=== PATIENT | male | born 1945 | race Caucasian/White ===

== ENCOUNTER → 2016-12-20 | Outpatient (CLI) | payer BC ==
[~2016-12-20] MED LIST: ALBU1AER9 INH; CHOL100010 PO; EPP3 IM; GLUC10007 PO; TAMS0.4C38 PO; WARF6TAB PO
[2016-12-20 09:45] LABS: ALT/SGPT 27 U/L (12-78); AST/SGOT 23 U/L (15-37); BLOOD UREA NITROGEN 17 mg/dl (7-18); BUN/CREATININE RATIO 14.4 (10-20); CARBON DIOXIDE 27 mmol/L (21-32); CHLORIDE 107 mmol/L (98-107); GLUCOSE 91 mg/dl (70-99); SODIUM 142 mmol/L (136-145)
[2016-12-20 09:51] LABS: BASO % 0.4 %; BASO ABS # 0.02 K/uL (0-0.2); EOS % 3.2 %; HEMATOCRIT 45.3 % (42-52); IG% 0.2 %; LYMPH ABS # 1.58 K/uL (1.2-3.4); MEAN CELL VOLUME 88.1 fL (80-100); MEAN CORPUSCULAR HEMOGLOBIN 30.5 pg (25-34); MEAN CORPUSCULAR HGB CONC 34.7 g/dl (32-36); MEAN PLATELET VOLUME 10.4 fL (7.4-10.4); NEUT % 53.2 %; PLATELET COUNT 213 K/uL (130-400); RED BLOOD COUNT 5.14 M/uL (4.7-6.1); WHITE BLOOD COUNT 4.65 K/uL (4.8-10.8)
[2016-12-20 09:52] LABS: CHOLESTEROL 256 mg/dl (0-200); CHOLESTEROL/HDL RATIO 5.1; HDL CHOLESTEROL 50 mg/dl; LDL CHOLESTEROL CALCULATED 176 mg/dl; TRIGLYCERIDES 151 mg/dl (0-150); VERY LOW DENSITY LIPOPROT CALC 30 mg/dl
[2016-12-20 10:36] LABS: COMPLETE YES
== END | disposition home or self-care (01) ==
LOC: C.LAB1850 08:32
PROVIDERS: ATTEND Internal Medicine
DX: Z11.59 Encounter for screening for other viral diseases (principal); E78.5 Hyperlipidemia, unspecified; E55.9 Vitamin D deficiency, unspecified; Z79.01 Long term (current) use of anticoagulants; R35.0 Frequency of micturition; Z51.81 Encounter for therapeutic drug level monitoring

== ENCOUNTER → 2017-05-23 | Outpatient (CLI) | payer BC ==
--- NOTE | 2017-05-23 12:34 | DIAGNOSTIC IMAGING REPORT ---
RIGHT SECOND FINGER RADIOGRAPHS CLINICAL HISTORY: Recent right index finger injury with swelling. COMPARISON: None FINDINGS: Alignment of the right second finger is anatomic. No acute fracture is identified. There is moderate joint space narrowing and osteophytosis of the distal interphalangeal joint of the right second finger. IMPRESSION: 1. No acute fracture or dislocation of the right second finger. 2. 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 Electronically signed by: Fidel Willard M.D. 05/23/2017 12:33 PM Dictated Date/Time: 05/23/2017 12:31 PM
== END | disposition home or self-care (01) ==
LOC: C.RADBC 12:11
PROVIDERS: ATTEND Internal Medicine
DX: S69.91XD Unspecified injury of right wrist, hand and finger(s), subsequent encounter (principal); X58.XXXD Exposure to other specified factors, subsequent encounter

== ENCOUNTER → 2017-07-18 | Outpatient (CLI) | payer BC | END | disposition home or self-care (01) | LOC: C.LABSPEC 16:50 | PROVIDERS: ATTEND Orthopaedic Surgery | DX: S61.230A Puncture wound without foreign body of right index finger without damage to nail, initial encounter (principal); X58.XXXA Exposure to other specified factors, initial encounter; D36.12 Benign neoplasm of peripheral nerves and autonomic nervous system, upper limb, including shoulder ==

== ENCOUNTER → 2017-07-18 | Outpatient (CLI) | payer BC | END | disposition home or self-care (01) | LOC: C.PATHSPEC 16:52 | PROVIDERS: ATTEND Orthopaedic Surgery | DX: D36.12 Benign neoplasm of peripheral nerves and autonomic nervous system, upper limb, including shoulder (principal) ==

== ENCOUNTER → 2017-07-25 | Outpatient (CLI) | payer BC ==
[2017-07-25 13:23] LABS: BASO % 0.2 %; BASO ABS # 0.01 K/uL (0-0.2); COMPLETE YES; EOS % 2.3 %; HEMATOCRIT 47.2 % (42-52); IG% 0.4 %; LYMPH ABS # 1.43 K/uL (1.2-3.4); MEAN CELL VOLUME 93.7 fL (80-100); MEAN CORPUSCULAR HEMOGLOBIN 30.6 pg (25-34); MEAN CORPUSCULAR HGB CONC 32.6 g/dl (32-36); MEAN PLATELET VOLUME 10.7 fL (7.4-10.4); MONO % 10.7 %; NEUT % 56.4 %; PLATELET COUNT 205 K/uL (130-400); RED BLOOD COUNT 5.04 M/uL (4.7-6.1); WHITE BLOOD COUNT 4.77 K/uL (4.8-10.8)
[2017-07-25 13:33] LABS: INR 1.9 (0.9-1.1); PROTHROMBIN TIME (PATIENT) 20.9 SECONDS (9.0-12.0)
[2017-07-25 14:10] LABS: BLOOD UREA NITROGEN 17 mg/dl (7-18); BUN/CREATININE RATIO 15.5 (10-20); CALCIUM 9.2 mg/dl (8.5-10.1); CARBON DIOXIDE 31 mmol/L (21-32); CHLORIDE 106 mmol/L (98-107); CHOLESTEROL 259 mg/dl (0-200); GLUCOSE 93 mg/dl (70-99); POTASSIUM 4.5 mmol/L (3.5-5.1); SODIUM 141 mmol/L (136-145); TRIGLYCERIDES 169 mg/dl (0-150); VERY LOW DENSITY LIPOPROT CALC 34 mg/dl
[2017-07-25 14:13] LABS: CHOLESTEROL/HDL RATIO 5.4; HDL CHOLESTEROL 48 mg/dl; LDL CHOLESTEROL CALCULATED 177 mg/dl
== END | disposition home or self-care (01) ==
LOC: C.LABBC 09:33
PROVIDERS: ATTEND Internal Medicine
DX: Z00.00 Encounter for general adult medical examination without abnormal findings (principal); E55.9 Vitamin D deficiency, unspecified; E78.5 Hyperlipidemia, unspecified; Z79.01 Long term (current) use of anticoagulants

== ENCOUNTER → 2018-01-23 | Outpatient (CLI) | payer BC | END | disposition home or self-care (01) | LOC: C.LABBC 09:05 | PROVIDERS: ATTEND Internal Medicine | DX: E78.5 Hyperlipidemia, unspecified (principal) ==

== ENCOUNTER 2023-02-13 00:29 | Inpatient (IN) ==
[2023-02-13] MEDS ORDERED: HYDROmorphone INJ 0.5 MG/0.5 ML SYR IV STA (03:06)
[2023-02-13] MEDS ORDERED: ONDANSETRON INJ 2 MG/ML 2 ML VIAL IV STA (03:06)
[2023-02-13 03:34] LABS: Appearance Urine Clear (Clear); Bacteria Urine Automated Negative (Negative); Bilirubin Urine Negative (Negative); Blood Urine Trace (Negative); Cast Urine Automated 0 /lpf (0-5); Color Urine Yellow; Epithelial Cell Urine Auto 0-5 /lpf (0-5); Glucose Urine UA Negative (Negative); Ketones Urine Trace (Negative); Leukocyte Esterase Urine Negative (Negative); Nitrite Urine Negative (Negative); Protein Urine Negative (Negative); Specific Gravity Urine 1.021 (1.000-1.030); Urobilinogen Urine Negative (Negative)
[2023-02-13 03:40] LABS: Basophils # (auto) 0.03 K/uL (0-0.2); Basophils % (auto) 0.3 %; Eosinophils # (auto) 0.03 K/uL (0-0.50); Eosinophils % (auto) 0.3 %; Hematocrit (blood only) 43.9 % (42.0-52.0); Hemoglobin 15.1 g/dl (14.0-18.0); Immature Granulocytes # (auto) 0.04 K/uL (0.01-0.20); Immature Granulocytes % (auto) 0.3 %; Lymphocytes # (auto) 0.96 K/uL (1.2-3.4); Lymphocytes % (auto) 8.3 %; Mean Corpuscular Hemoglobin 30.6 pg (25.0-34.0); Mean Corpuscular Hgb Conc 34.4 g/dL (32.0-36.0); Mean Platelet Volume 10.2 fL (9.4-12.4); Monocytes # (auto) 0.81 K/uL (0.11-0.59); Neutrophils # (auto) 9.69 K/uL (1.40-6.50); Neutrophils % (auto) 83.8 %; Platelet Count 174 K/uL (130-400); RDW Standard Deviation 42.5 fL (36.4-46.3); Red Blood Count 4.93 M/uL (4.70-6.10); White Blood Count 11.56 K/ul (4.8-10.8)
[2023-02-13 03:48] LABS: BUN Creatinine Ratio 18.1 (10-20); Bilirubin,Total 0.6 mg/dl (0.2-1.0); Calcium 8.9 mg/dl (8.6-10.3); Creatinine Clr Calc Pharmacy 62.9 ml/min; Est GFR (African American) 62.7 ml/min; Est GFR (Non-African American) 54.1 ml/min; Magnesium 1.6 mg/dl (1.7-2.4); Potassium 4.2 mmol/L (3.5-5.1); Total Protein 6.5 gm/dl (6.0-8.3)
[2023-02-13 03:59] LABS: INR 3.4 (0.9-1.1); Prothrombin Time 33.5 Seconds (9.0-12.0)
[2023-02-13] MEDS ORDERED: VANCOMYCIN CONSULT ACTIVE PRN ×2 (05:05→08:40)
[2023-02-13] MEDS ORDERED: VANCOMYCIN HCL 2,250 MG in SODIUM CHLORIDE 0.9% 500 ML IV ONE (05:05)
--- NOTE | 2023-02-13 06:09 | History & Physical Report ---
Date of Service February 13, 2023 Assessment & Plan (1) Cellulitis: Plan: 77 male presenting with RLE cellulitis that started this evening around 23:30. Redness has progressed to above the knee. Patient with chills, otherwise denies systemic signs of infection. WBC mildly elevated at 11.56. No evidence of deeper soft tissue infection/necrotizing fasciitis. Patient has been given Vancomycin. US of RLE performed - results pending -Observation to medical -Monitor area of redness - angelica and date daily -Continue Vancomycin -Tylenol as needed for pain or fever -Morphine as needed for severe pain (2) Hyperlipidemia: Plan: Chronic. Stable -Continue Crestor at home dose -Heart healthy diet (3) Benign localized hyperplasia of prostate: Plan: Chronic. Stable -Continue Flomax 0.4mg po qHS (4) DVT (deep venous thrombosis): Plan: Patient with remote history of VTE - bilateral DVTs and PEs. He is on Coumadin anticoagulation. INR today = 3.4. -Hold tonight's dose -Resume 5mg po qHS on 02/14/23 -Check INR in AM VTE over 25 years ago. Most likely unprovoked. Patient is to be on lifelong Coumadin. He has discussed possibly switching to DOAC with his PCP. They have decided that he will stay on Coumadin for now as he is tolerating it well. F/E/N - Heplock. Mg repletion x 2gm, Heart healthy diet as tolerated Ppx - Coumadin Code - Full Dispo - Observation to medical History of Present Illness Chief Complaint: RLE cellulitis Primary Care Provider: Ephraim Chester MD Dixon Fonseca is a pleasant 77yo male with remote history of VTE on Coumadin anticoagulation, [facility] presenting with RLE cellulitis. One week ago patient was doing yard work. He fell in the yard and landed in an area of cut sticks and yard trimming and sustained a skin tear and scratch to his lateral right leg. He was seen at [facility]. The wound was cleaned and dressed and had steri strips placed. He was started on Keflex. Patient took 2 doses of Keflex and then began feeling ill - abdominal pain and diarrhea. He contacted the Urgent Care and was told that he did not have to complete the antibiotics. He was doing well for several days. He changed the dressing on his wound daily and noted a considerable amount of serous drainage. This evening around 10:30 PM he developed acute pain in the right rosado with redness and swelling. The redness progressed, now above his right knee. He also developed some chills. These symptoms prompted him to come to the ER. In the ER he is afebrile, HD stable and non-toxic in appearance. No additional complaints. ER course: Dilaudid, Zofran, Vancomycin Allergies Allergy/AdvReac Type Severity Reaction Status Date / Time bee venom protein (honey bee) Allergy Intermediate SWELLING Verified 02/13/23 01:29 mold Allergy Intermediate SNEEZING, Verified 02/13/23 01:29 CONGESTION cephalexin AdvReac Severe SEVERE Verified 02/13/23 01:29 DIARRHEA AFTER 2 DOSES Home Medications Medication Instructions Recorded Confirmed Type cholecalciferol (vitamin D3) 25 1,000 units PO DAILY 08/18/19 02/13/23 History mcg (1,000 unit) capsule tamsulosin 0.4 mg capsule 0.4 mg PO HS #90 caps 04/03/22 02/13/23 Rx omeprazole 20 mg capsule,delayed 20 mg PO DAILY #90 caps 06/05/22 02/13/23 Rx release albuterol sulfate 90 mcg/actuation 1 inh inhalation BID PRN shortness 10/02/22 02/13/23 Rx aerosol inhaler of breath or wheezing #6.7 grams vitamin B complex (B 1 tab PO DAILY 11/22/22 02/13/23 History Complex-Vitamin B12 tablet) rosuvastatin 10 mg tablet 10 mg PO HS #90 tabs 12/13/22 02/13/23 Rx warfarin 5 mg tablet 5 mg PO QPM 02/13/23 02/13/23 History Past Med/Surg History Medical History (Updated 02/13/23 @ 06:07 by Priyanka Coelho DO) History of deep vein thrombosis of lower extremity Hyperlipidemia Surgical History H/O oral surgery History of colonoscopy S/P tonsillectomy and adenoidectomy Family History Mother Lymphoma Brother Prostate cancer FH: kidney cancer Father Melanoma Non-Hodgkin lymphoma Grandmother (Maternal) Stroke Grandmother (Paternal) Stroke Social History Smoking Status: Unknown if ever smoked Second Hand Exposure: No; Hx Alcohol Use: No Hx Substance Use: No Preferred Language: Nepali Communication Ability: Effective Visual Impairment: No Limitations Hearing Ability: Normal Developmental Behavioral Physician Required: Yes marital status: Current Living Situation: Spouse current occupational status: retired Feels Safe at Home: Yes Childhood Exposure to Second-Hand Smoke: No Dental Care, Regularly: Yes Physical Activity Frequency: Daily Seatbelt Use: always Sunscreen Use: No Review of Systems Review of Systems: All systems reviewed & are unremarkable except as noted in HPI & below Physical Exam Physical Exam: General: patient resting comfortably, NAD, non-toxic in appearance, AA&O x 4 Skin: warm, dry, intact, no rashes or lesions HEENT: NC/AT, PERRL, EOMI, anicteric sclera, conjunctiva without injection, external ear normal to inspection and nontender, nares patent, moist mucus membranes, dentition intact, no oropharyngeal lesions, neck supple, trachea midline, no LAD, no thyromegaly, no JVD Heart: +S1/S2, regular, no m/r/g Lungs: equal air entry bilaterally, no rales/rhonchi/wheezes Abd: +BS, soft, NT/ND, no masses/organomegaly/ascites Ext: warmth and redness of RLE with redness extending to above the right knee, tender to palpation, 1+ pitting edema. No crepitus, bullae or lymphangitic streaking Neuro: nonfocal, patient AA&O x 4, speech intact, no facial droop, moving all extremities on command with equal strength 5/5 Results & Data Results & Data Vital Signs (Past 12 Hours) Vital Signs Temp Pulse Pulse Resp BP BP Pulse Ox 02/13/23 05:49 83 16 157/88 H 96 02/13/23 04:51 86 16 152/81 H 92 02/13/23 04:48 88 L 02/13/23 04:02 83 16 153/78 H 95 02/13/23 03:38 82 16 165/87 H 94 02/13/23 01:44 37.2 C 80 20 152/94 H 98 02/13/23 00:29 18 152/94 H 02/13/23 00:31 36.5 C 80 16 152/88 H 100 O2 Del Method O2 Flow Rate 02/13/23 05:49 Nasal Cannula 2 02/13/23 04:51 Nasal Cannula 2 02/13/23 04:48 Nasal Cannula 0 02/13/23 04:02 Room Air 02/13/23 03:38 Room Air 02/13/23 01:44 Room Air 02/13/23 00:29 Room Air 02/13/23 00:31 Room Air Laboratory Results Laboratory Results WBC 11.56 K/ul (4.8-10.8) H 02/13/23 03:10 RBC 4.93 M/uL (4.70-6.10) 02/13/23 03:10 Hgb 15.1 g/dl (14.0-18.0) 02/13/23 03:10 Hct 43.9 % (42.0-52.0) 02/13/23 03:10 MCV 89.0 fL (80.0-100.0) 02/13/23 03:10 MCH 30.6 pg (25.0-34.0) 02/13/23 03:10 MCHC 34.4 g/dL (32.0-36.0) 02/13/23 03:10 RDW Std Deviation 42.5 fL (36.4-46.3) 02/13/23 03:10 RDW Coeff of Aydee 13.0 % (11.5-14.5) 02/13/23 03:10 Plt Count 174 K/uL (130-400) 02/13/23 03:10 MPV 10.2 fL (9.4-12.4) 02/13/23 03:10 Immature Gran % (Auto) 0.3 % 02/13/23 03:10 Neut % (Auto) 83.8 % 02/13/23 03:10 Lymph % (Auto) 8.3 % 02/13/23 03:10 [place] % (Auto) 7.0 % 02/13/23 03:10 Eos % (Auto) 0.3 % 02/13/23 03:10 Baso % (Auto) 0.3 % 02/13/23 03:10 Neut # (Auto) 9.69 K/uL (1.40-6.50) H 02/13/23 03:10 Lymph # (Auto) 0.96 K/uL (1.2-3.4) L 02/13/23 03:10 [place] # (Auto) 0.81 K/uL (0.11-0.59) H 02/13/23 03:10 Eos # (Auto) 0.03 K/uL (0-0.50) 02/13/23 03:10 Baso # (Auto) 0.03 K/uL (0-0.2) 02/13/23 03:10 Immature Gran # (Auto) 0.04 K/uL (0.01-0.20) 02/13/23 03:10 PT 33.5 Seconds (9.0-12.0) H 02/13/23 03:10 INR 3.4 (0.9-1.1) H 02/13/23 03:10 Sodium 140 mmol/L (136-145) 02/13/23 03:10 Potassium 4.2 mmol/L (3.5-5.1) 02/13/23 03:10 Chloride 108 mmol/L (98-107) H 02/13/23 03:10 Carbon Dioxide 25 mmol/L (21-32) 02/13/23 03:10 Anion Gap 7 (3-11) 02/13/23 03:10 BUN 23 mg/dl (6-23) 02/13/23 03:10 Creatinine 1.27 mg/dl (0.6-1.4) 02/13/23 03:10 Est Cr Clr Drug Dosing 62.9 ml/min 02/13/23 03:10 Est GFR ( Amer) 62.7 ml/min 02/13/23 03:10 Est GFR (Non-Af Amer) 54.1 ml/min 02/13/23 03:10 BUN/Creatinine Ratio 18.1 (10-20) 02/13/23 03:10 Glucose 104 mg/dl (70-99(Fasting)) H 02/13/23 03:10 Lactate 2.0 mmol/L (0.4-2.0) 02/13/23 03:10 Calcium 8.9 mg/dl (8.6-10.3) 02/13/23 03:10 Magnesium 1.6 mg/dl (1.7-2.4) L 02/13/23 03:10 Total Bilirubin 0.6 mg/dl (0.2-1.0) 02/13/23 03:10 Direct Bilirubin 0.0 mg/dl (0-0.2) 02/13/23 03:10 AST 26 U/L (13-39) 02/13/23 03:10 ALT 23 U/L (7-52) 02/13/23 03:10 Alkaline Phosphatase 62 U/L (34-104) 02/13/23 03:10 Troponin I High Sens 8.0 pg/ml (0-20) 02/13/23 03:10 Total Protein 6.5 gm/dl (6.0-8.3) 02/13/23 03:10 Albumin 4.0 gm/dl (3.4-5.0) 02/13/23 03:10 Procalcitonin 0.05 ng/ml (0-0.5) 02/13/23 03:10 Urine Color Yellow 02/13/23 03:10 Urine Appearance Clear (Clear) 02/13/23 03:10 Urine pH 6.0 (4.5-7.5) 02/13/23 03:10 Ur Specific [place] 1.021 (1.000-1.030) 02/13/23 03:10 Urine Protein Negative (Negative) 02/13/23 03:10 Urine Glucose (UA) Negative (Negative) 02/13/23 03:10 Urine Ketones Trace (Negative) H 02/13/23 03:10 Urine Blood Trace (Negative) H 02/13/23 03:10 Urine Nitrite Negative (Negative) 02/13/23 03:10 Urine Bilirubin Negative (Negative) 02/13/23 03:10 Urine Urobilinogen Negative (Negative) 02/13/23 03:10 Ur Leukocyte Esterase Negative (Negative) 02/13/23 03:10 Urine WBC (Auto) 1-5 /hpf (0-5) 02/13/23 03:10 Urine RBC (Auto) 5-10 /hpf (0-4) H 02/13/23 03:10 U Hyaline Cast (Auto) 0 /lpf (0-5) 02/13/23 03:10 U Epithel Cells (Auto) 0-5 /lpf (0-5) 02/13/23 03:10 Urine Bacteria (Auto) Negative (Negative) 02/13/23 03:10 SARS-CoV-2, RNA, NAAT NEGATIVE (NEGATIVE) 02/13/23 03:10 PG Care Time/CCT Total # of Minutes Spent Total Time Spent with Patient: Total time spent is greater than 50% in coordination of care (as documented) at patient's floor/unit and/or counseling patient: Coding Level of Care Code 20458 INT INP/OBS CARE 2/55MIN Diagnoses Cellulitis L03.90 Hyperlipidemia E78.5 Benign localized hyperplasia of prostate N40.0 DVT (deep venous thrombosis) I82.409
--- NOTE | 2023-02-13 06:52 | Ultrasound Report ---
Exam(s): US VENOUS RIGHT LOWER EXTREMITY EXAM: US Duplex Right Lower Extremity Veins CLINICAL HISTORY: Reason for exam: eval for dvt. TECHNIQUE: Real-time duplex ultrasound scan of the right lower extremity veins integrating B-mode two-dimensional vascular structure, Doppler spectral analysis, color flow Doppler imaging and compression. COMPARISON: No relevant prior studies available. FINDINGS: Deep veins: Unremarkable. The visualized deep veins of the right lower extremity are compressible with color flow. No visualized thrombus. Superficial veins: Unremarkable. Soft tissues: No acute findings. IMPRESSION: No DVT within the right lower extremity. Electronically signed by: Tristin Leal MD 02/13/23 06:52 AM
--- NOTE | 2023-02-13 07:13 | Emergency Department Note ---
Impression & Plan Cellulitis of right lower extremity, Traumatic open wound of right lower leg with infection Admit to the [facility] Hospitalist. ED Provider Note NAME: NIKOLAS AMANDA AGE: 77 SEX: M ARRIVES VIA: Walk-In INFORMANT: Patient and his ED PROVIDER(S): Jennifer Leo DO CHIEF COMPLAINT: Right leg pain PLAN: Disposition: Admit to the [facility] Hospitalist Condition: Fair MEDICAL DECISION MAKING: This is a 77-year-old male patient who presents to emergency department with s ignificant pain to the right lower extremity surrounding a wound he sustained approximately a week ago. On exam, the patient has obvious signs of cellulitis surrounding the wound extending proximally to the knee. There is moderate serosanguineous fluid draining from the wound. Steri-Strips were removed. Laboratory studies revealed a white blood cell count 11.5, no significant evidence of anemia and INR 3.4. Magnesium was slightly low at 1.6. Duplex revealed no evidence for DVT. Patient was given a dose of IV Dilaudid to manage his pain. Patient was medicated with IV vancomycin for obvious cellulitis and wound infection to the right lower extremity. Triage Nursing notes reviewed and agree with them. Additional history obtained from patient's is at the bedside. External medical records were reviewed including primary care visits Vital Signs: reviewed and unremarkable Differential diagnosis: DVT, cellulitis, wound abscess ER treatment provided: Cardiac monitoring IV Dilaudid IV Zofran IV vancomycin Diagnostics interpreted by me: ECG: Normal sinus rhythm at [address] segment elevation or signs of ischemia. There is no ectopy Cardiac Monitoring: Normal sinus rhythm at 81 Laboratory studies: See below Imaging studies: As per stat rad Right lower extremity duplex: No DVT HPI: 77/M arrives for evaluation of right leg pain. Patient presents after he woke with moderate pain in the right leg. Patient suffered an abrasion/skin tear to the right posterior lower leg. He was seen at [facility] urgent care where they cleaned the wound and repaired it with Steri-Strips. It seemed to be healing appropriately until last evening when the patient noticed significant increased pain to the wound and significant edema and erythema of the right tib- fib region. PAST MEDICAL HISTORY:A-fib, DVT, anxiety PAST SURGICAL HISTORY:See Below FAMILY HISTORY:See Below SOCIAL HISTORY:Patient lives with his HOME MEDICATIONS:See Below ALLERGIES:See Below VITALS:See Below PHYSICAL EXAMINATION: HEENT: Head - normocephalic and atraumatic. Pupils are equal, round, and reactive to light. Extraocular eye muscles are intact, and sclera are anict kristan. Nose - moist nasal mucosa without discharge. Mouth - moist buccal mucosa. Oropharynx is nonerythematous and there is no tonsillar exudate or edema noted. Neck: Supple; no cervical lymphadenopathy Heart: Regular rate and rhythm. There is a normal S1 and S2 with no murmurs, clicks, or gallops appreciated. Lungs: Clear to auscultation bilaterally with no wheezes, rales, or rhonchi. Abdomen: Soft, completely nontender, nondistended, with good bowel sounds. There are no palpable pulsatile masses or hepatosplenomegaly. There is no guarding, rigidity, or rebound noted. Extremities: Significant erythema and edema noted to the right lower extremity specifically about the circumferential tib-fib region. There is a healing wound noted over the distal posterior tib-fib region with some Steri-Strips remaining in place nor peeling away. There is serosanguineous fluid draining from that wound. Skin: warm and dry with good turgor and no rashes. ED COURSE: Times/Reassessments: 140 patient was evaluated in room A-10. A complete history and physical was performed. A septic protocol was performed. An order was placed for continuous cardiac monitoring. The patient was in a normal sinus rhythm at a rate of 81. A twel ve-lead EKG was obtained as described above. Patient was medicated with IV Dilaudid and IV Zofran for pain and nausea. Patient had a duplex of the right lower extremity. Patient was started on IV vancomycin. I discussed the case with [facility] Hospitalist and they will evaluate for further management. Jennifer Leo DO Past Med/Surg History Medical History (Updated 02/14/23 @ 06:35 by Jennifer Leo DO) History of deep vein thrombosis of lower extremity Hyperlipidemia Surgical History H/O oral surgery History of colonoscopy S/P tonsillectomy and adenoidectomy Family History Mother Lymphoma Brother Prostate cancer FH: kidney cancer Father Melanoma Non-Hodgkin lymphoma Grandmother (Maternal) Stroke Grandmother (Paternal) Stroke Social History Smoking Status: Never smoker Second Hand Exposure: No; Hx Alcohol Use: No Hx Substance Use: No Preferred Language: Fijian Communication Ability: Effective Visual Impairment: No Limitations Hearing Ability: Normal Fuel Manager Required: No Beliefs That Will Affect Care: Moravian marital status: Current Living Situation: Spouse current occupational status: retired Other Information That Helps Us Care for You: No Feels Safe at Home: Yes Childhood Exposure to Second-Hand Smoke: No Dental Care, Regularly: Yes Physical Activity Frequency: Daily Seatbelt Use: always Sunscreen Use: No Assistive Devices: None Allergies Allergies Allergy/AdvReac Type Severity Reaction Status Date / Time bee venom protein (honey bee) Allergy Intermediate SWELLING Verified 02/13/23 01:29 mold Allergy Intermediate SNEEZING, Verified 02/13/23 01:29 CONGESTION cephalexin AdvReac Severe SEVERE Verified 02/13/23 01:29 DIARRHEA AFTER 2 DOSES Home Meds Home Medications Medication Instructions Recorded Confirmed cholecalciferol (vitamin D3) 25 1,000 units PO DAILY 08/18/19 02/13/23 mcg (1,000 unit) capsule vitamin B complex (B 1 tab PO DAILY 11/22/22 02/13/23 Complex-Vitamin B12 tablet) warfarin 5 mg tablet 5 mg PO QPM 02/13/23 02/13/23 Previous Rx's Medication Instructions Recorded tamsulosin 0.4 mg capsule 0.4 mg PO HS #90 caps 04/03/22 omeprazole 20 mg capsule,delayed 20 mg PO DAILY #90 caps 06/05/22 release albuterol sulfate 90 mcg/actuation 1 inh inhalation BID PRN shortness 10/02/22 aerosol inhaler of breath or wheezing #6.7 grams rosuvastatin 10 mg tablet 10 mg PO HS #90 tabs 12/13/22 Results & Data (ED) Vital Signs Vital Signs - 24 hr 02/13/23 00:31 02/13/23 00:29 02/13/23 01:44 Temperature 36.5 C 37.2 C Temperature Source Temporal Artery Scan Pulse Rate 80 80 Pulse Rate [Apical] Pulse Rate from SpO2 Sensor Respiratory Rate 16 18 20 Respiratory Effort / Characteristics Non-Labored Spontaneous Non-Labored Spontaneous Respiratory Depth Normal Normal Respiratory Pattern Regular Regular Blood Pressure 152/88 H 152/94 H Blood Pressure [Right Arm] 152/94 H Blood Pressure Mean 109 113 Blood Pressure Mean [Right Arm] 113 Blood Pressure Position [Right Arm] Sitting Pulse Oximetry 100 98 Oxygen Delivery Method Room Air Room Air Room Air Oxygen Flow Rate Sepsis Recent Fever Within 48 Hours No Sepsis New/Unexplained Change in Mental Status N/A Sepsis Action Taken by Nursing No Action Required Oxygen Flow Rate - Titration Pulse Oximetry Post Tiitration 02/13/23 03:38 02/13/23 04:02 02/13/23 04:48 Temperature Temperature Source Pulse Rate Pulse Rate [Apical] 82 83 Pulse Rate from SpO2 Sensor Respiratory Rate 16 16 Respiratory Effort / Characteristics Respiratory Depth Respiratory Pattern Blood Pressure Blood Pressure [Right Arm] 165/87 H 153/78 H Blood Pressure Mean Blood Pressure Mean [Right Arm] 113 103 Blood Pressure Position [Right Arm] Pulse Oximetry 94 95 88 L Oxygen Delivery Method Room Air Room Air Nasal Cannula Oxygen Flow Rate 0 Sepsis Recent Fever Within 48 Hours Sepsis New/Unexplained Change in Mental Status Sepsis Action Taken by Nursing Oxygen Flow Rate - Titration 2 Pulse Oximetry Post Tiitration 92 02/13/23 04:51 02/13/23 05:49 02/13/23 06:21 Temperature Temperature Source Pulse Rate Pulse Rate [Apical] 86 83 79 Pulse Rate from SpO2 Sensor Respiratory Rate 16 16 16 Respiratory Effort / Characteristics Respiratory Depth Respiratory Pattern Blood Pressure Blood Pressure [Right Arm] 152/81 H 157/88 H 153/84 H Blood Pressure Mean Blood Pressure Mean [Right Arm] 104 111 107 Blood Pressure Position [Right Arm] Pulse Oximetry 92 96 94 Oxygen Delivery Method Nasal Cannula Nasal Cannula Nasal Cannula Oxygen Flow Rate 2 2 2 Sepsis Recent Fever Within 48 Hours Sepsis New/Unexplained Change in Mental Status Sepsis Action Taken by Nursing Oxygen Flow Rate - Titration Pulse Oximetry Post Tiitration 02/13/23 06:30 Temperature Temperature Source Pulse Rate 81 Pulse Rate [Apical] Pulse Rate from SpO2 Sensor 80 Respiratory Rate 18 Respiratory Effort / Characteristics Respiratory Depth Respiratory Pattern Blood Pressure Blood Pressure [Right Arm] Blood Pressure Mean Blood Pressure Mean [Right Arm] Blood Pressure Position [Right Arm] Pulse Oximetry 95 Oxygen Delivery Method Oxygen Flow Rate Sepsis Recent Fever Within 48 Hours Sepsis New/Unexplained Change in Mental Status Sepsis Action Taken by Nursing Oxygen Flow Rate - Titration Pulse Oximetry Post Tiitration Laboratory Data 02/13/23 03:10 02/13/23 03:10 Lab Results 02/13/23 02/13/23 02/13/23 Range/Units 03:10 03:10 03:10 WBC 11.56 H (4.8-10.8) K/ul RBC 4.93 (4.70-6.10) M/uL Hgb 15.1 (14.0-18.0) g/dl Hct 43.9 (42.0-52.0) % MCV 89.0 (80.0-100.0) fL MCH 30.6 (25.0-34.0) pg MCHC 34.4 (32.0-36.0) g/dL RDW Std Deviation 42.5 (36.4-46.3) fL RDW Coeff of Aydee 13.0 (11.5-14.5) % Plt Count 174 (130-400) K/uL MPV 10.2 (9.4-12.4) fL Immature Gran % (Auto) 0.3 % Neut % (Auto) 83.8 % Lymph % (Auto) 8.3 % [place] % (Auto) 7.0 % Eos % (Auto) 0.3 % Baso % (Auto) 0.3 % Neut # (Auto) 9.69 H (1.40-6.50) K/uL Lymph # (Auto) 0.96 L (1.2-3.4) K/uL [place] # (Auto) 0.81 H (0.11-0.59) K/uL Eos # (Auto) 0.03 (0-0.50) K/uL Baso # (Auto) 0.03 (0-0.2) K/uL Immature Gran # (Auto) 0.04 (0.01-0.20) K/uL PT (9.0-12.0) Seconds INR (0.9-1.1) Sodium 140 (136-145) mmol/L Potassium 4.2 (3.5-5.1) mmol/L Chloride 108 H (98-107) mmol/L Carbon Dioxide 25 (21-32) mmol/L Anion Gap 7 (3-11) BUN 23 (6-23) mg/dl Creatinine 1.27 (0.6-1.4) mg/dl Est Cr Clr Drug Dosing 62.9 ml/min Est GFR ( Amer) 62.7 ml/min Est GFR (Non-Af Amer) 54.1 ml/min BUN/Creatinine Ratio 18.1 (10-20) Glucose 104 H (70-99(Fasting)) mg/dl Lactate 2.0 (0.4-2.0) mmol/L Calcium 8.9 (8.6-10.3) mg/dl Magnesium 1.6 L (1.7-2.4) mg/dl Total Bilirubin 0.6 (0.2-1.0) mg/dl Direct Bilirubin 0.0 (0-0.2) mg/dl AST 26 (13-39) U/L ALT 23 (7-52) U/L Alkaline Phosphatase 62 (34-104) U/L Troponin I High Sens 8.0 (0-20) pg/ml Total Protein 6.5 (6.0-8.3) gm/dl Albumin 4.0 (3.4-5.0) gm/dl Procalcitonin (0-0.5) ng/ml TSH (0.300-4.500) uIu/ml Free T4 (0.61-1.60) ng/dl Urine Color Urine Appearance (Clear) Urine pH (4.5-7.5) Ur Specific Dane (1.000-1.030) Urine Protein (Negative) Urine Glucose (UA) (Negative) Urine Ketones (Negative) Urine Blood (Negative) Urine Nitrite (Negative) Urine Bilirubin (Negative) Urine Urobilinogen (Negative) Ur Leukocyte Esterase (Negative) Urine WBC (Auto) (0-5) /hpf Urine RBC (Auto) (0-4) /hpf U Hyaline Cast (Auto) (0-5) /lpf U Epithel Cells (Auto) (0-5) /lpf Urine Bacteria (Auto) (Negative) SARS-CoV-2, RNA, NAAT (NEGATIVE) 02/13/23 02/13/23 02/13/23 Range/Units 03:10 03:10 03:10 WBC (4.8-10.8) K/ul RBC (4.70-6.10) M/uL Hgb (14.0-18.0) g/dl Hct (42.0-52.0) % MCV (80.0-100.0) fL MCH (25.0-34.0) pg MCHC (32.0-36.0) g/dL RDW Std Deviation (36.4-46.3) fL RDW Coeff of Aydee (11.5-14.5) % Plt Count (130-400) K/uL MPV (9.4-12.4) fL Immature Gran % (Auto) % Neut % (Auto) % Lymph % (Auto) % [place] % (Auto) % Eos % (Auto) % Baso % (Auto) % Neut # (Auto) (1.40-6.50) K/uL Lymph # (Auto) (1.2-3.4) K/uL [place] # (Auto) (0.11-0.59) K/uL Eos # (Auto) (0-0.50) K/uL Baso # (Auto) (0-0.2) K/uL Immature Gran # (Auto) (0.01-0.20) K/uL PT 33.5 H (9.0-12.0) Seconds INR 3.4 H (0.9-1.1) Sodium (136-145) mmol/L Potassium (3.5-5.1) mmol/L Chloride (98-107) mmol/L Carbon Dioxide (21-32) mmol/L Anion Gap (3-11) BUN (6-23) mg/dl Creatinine (0.6-1.4) mg/dl Est Cr Clr Drug Dosing ml/min Est GFR ( Amer) ml/min Est GFR (Non-Af Amer) ml/min BUN/Creatinine Ratio (10-20) Glucose (70-99(Fasting)) mg/dl Lactate (0.4-2.0) mmol/L Calcium (8.6-10.3) mg/dl Magnesium (1.7-2.4) mg/dl Total Bilirubin (0.2-1.0) mg/dl Direct Bilirubin (0-0.2) mg/dl AST (13-39) U/L ALT (7-52) U/L Alkaline Phosphatase (34-104) U/L Troponin I High Sens (0-20) pg/ml Total Protein (6.0-8.3) gm/dl Albumin (3.4-5.0) gm/dl Procalcitonin 0.05 (0-0.5) ng/ml TSH (0.300-4.500) uIu/ml Free T4 (0.61-1.60) ng/dl Urine Color Yellow Urine Appearance Clear (Clear) Urine pH 6.0 (4.5-7.5) Ur Specific Dane 1.021 (1.000-1.030) Urine Protein Negative (Negative) Urine Glucose (UA) Negative (Negative) Urine Ketones Trace H (Negative) Urine Blood Trace H (Negative) Urine Nitrite Negative (Negative) Urine Bilirubin Negative (Negative) Urine Urobilinogen Negative (Negative) Ur Leukocyte Esterase Negative (Negative) Urine WBC (Auto) 1-5 (0-5) /hpf Urine RBC (Auto) 5-10 H (0-4) /hpf U Hyaline Cast (Auto) 0 (0-5) /lpf U Epithel Cells (Auto) 0-5 (0-5) /lpf Urine Bacteria (Auto) Negative (Negative) SARS-CoV-2, RNA, NAAT (NEGATIVE) 02/13/23 02/13/23 Range/Units 03:10 03:10 WBC (4.8-10.8) K/ul RBC (4.70-6.10) M/uL Hgb (14.0-18.0) g/dl Hct (42.0-52.0) % MCV (80.0-100.0) fL MCH (25.0-34.0) pg MCHC (32.0-36.0) g/dL RDW Std Deviation (36.4-46.3) fL RDW Coeff of Aydee (11.5-14.5) % Plt Count (130-400) K/uL MPV (9.4-12.4) fL Immature Gran % (Auto) % Neut % (Auto) % Lymph % (Auto) % [place] % (Auto) % Eos % (Auto) % Baso % (Auto) % Neut # (Auto) (1.40-6.50) K/uL Lymph # (Auto) (1.2-3.4) K/uL [place] # (Auto) (0.11-0.59) K/uL Eos # (Auto) (0-0.50) K/uL Baso # (Auto) (0-0.2) K/uL Immature Gran # (Auto) (0.01-0.20) K/uL PT (9.0-12.0) Seconds INR (0.9-1.1) Sodium (136-145) mmol/L Potassium (3.5-5.1) mmol/L Chloride (98-107) mmol/L Carbon Dioxide (21-32) mmol/L Anion Gap (3-11) BUN (6-23) mg/dl Creatinine (0.6-1.4) mg/dl Est Cr Clr Drug Dosing ml/min Est GFR ( Amer) ml/min Est GFR (Non-Af Amer) ml/min BUN/Creatinine Ratio (10-20) Glucose (70-99(Fasting)) mg/dl Lactate (0.4-2.0) mmol/L Calcium (8.6-10.3) mg/dl Magnesium (1.7-2.4) mg/dl Total Bilirubin (0.2-1.0) mg/dl Direct Bilirubin (0-0.2) mg/dl AST (13-39) U/L ALT (7-52) U/L Alkaline Phosphatase (34-104) U/L Troponin I High Sens (0-20) pg/ml Total Protein (6.0-8.3) gm/dl Albumin (3.4-5.0) gm/dl Procalcitonin (0-0.5) ng/ml TSH 4.682 H (0.300-4.500) uIu/ml Free T4 0.77 (0.61-1.60) ng/dl Urine Color Urine Appearance (Clear) Urine pH (4.5-7.5) Ur Specific Dane (1.000-1.030) Urine Protein (Negative) Urine Glucose (UA) (Negative) Urine Ketones (Negative) Urine Blood (Negative) Urine Nitrite (Negative) Urine Bilirubin (Negative) Urine Urobilinogen (Negative) Ur Leukocyte Esterase (Negative) Urine WBC (Auto) (0-5) /hpf Urine RBC (Auto) (0-4) /hpf U Hyaline Cast (Auto) (0-5) /lpf U Epithel Cells (Auto) (0-5) /lpf Urine Bacteria (Auto) (Negative) SARS-CoV-2, RNA, NAAT NEGATIVE (NEGATIVE) Administered Medications Acetaminophen (Acetaminophen 325 Mg Tab) 650 mg PO Q4H PRN PRN Reason: pain or fever Stop: 03/15/23 08:39 Last Admin: 02/14/23 00:39 Dose: 650 mg Documented By: Admin: 02/13/23 21:12 Dose: 650 mg Documented By: KSJulio Admin: 02/13/23 15:02 Dose: 650 mg Documented By: JM Vancomycin HCl 750 mg/ Sodium (Chloride) 265 mls @ 200 mls/hr IV Q12H ILDEFONSO; Protocol Stop: 02/20/23 15:59 Last Infusion: 02/14/23 05:30 Dose: 0 mls/hr Documented By: Admin: 02/14/23 03:50 Dose: 200 mls/hr Documented By: Infusion: 02/13/23 18:05 Dose: 0 mls/hr Documented By: Admin: 02/13/23 16:37 Dose: 200 mls/hr Documented By: JM Pantoprazole Sodium (Pantoprazole 40 Mg Tab) 40 mg PO DAILY [facility] Stop: 03/15/23 08:59 Last Admin: 02/13/23 10:32 Dose: 40 mg Documented By: JM Rosuvastatin Calcium (Rosuvastatin Calcium 10 Mg Tab) 10 mg PO [facility] Stop: 03/15/23 20:59 Last Admin: 02/13/23 20:07 Dose: Not Given Documented By: KSC Tamsulosin HCl (Tamsulosin Hcl 0.4 Mg Cap) 0.4 mg PO HS [facility] Stop: 03/15/23 20:59 Last Admin: 02/13/23 20:07 Dose: Not Given Documented By: KSC Discontinued Medications Hydromorphone HCl (Hydromorphone Inj 0.5 Mg/0.5 Ml Syr) 0.5 mg IV NOW STA Stop: 02/13/23 03:07 Last Admin: 02/13/23 03:23 Dose: 0.5 mg Documented By: TEJA Vancomycin HCl 2,250 mg/ (Sodium Chloride) 545 mls @ 200 mls/hr IV NOW ONE Stop: 02/13/23 07:48 Last Admin: 02/13/23 05:34 Dose: 200 mls/hr Documented By: FADIA Magnesium Sulfate/Dextrose (Magnesium Sulfate / D5w) 1 gm in 100 mls @ 50 mls/hr IV Q2H ILDEFONSO Stop: 02/13/23 12:39 Last Infusion: 02/13/23 14:31 Dose: 0 mls/hr Documented By: Admin: 02/13/23 12:25 Dose: 50 mls/hr Documented By: Infusion: 02/13/23 12:25 Dose: 50 mls/hr Documented By: Admin: 02/13/23 10:33 Dose: 50 mls/hr Documented By: CS Ondansetron HCl (Ondansetron Inj 2 Mg/Ml 2 Ml Vial) 4 mg IV NOW STA Stop: 02/13/23 03:07 Last Admin: 02/13/23 03:22 Dose: 4 mg Documented By: CAA Imaging Data Radiologist's Impression: Venous Doppler Study 02/13/23 02:50 Exam(s): US VENOUS RIGHT LOWER EXTREMITY EXAM: US Duplex Right Lower Extremity Veins CLINICAL HISTORY: Reason for exam: eval for dvt. TECHNIQUE: Real-time duplex ultrasound scan of the right lower extremity veins integrating B-mode two-dimensional vascular structure, Doppler spectral analysis, color flow Doppler imaging and compression. COMPARISON: No relevant prior studies available. FINDINGS: Deep veins: Unremarkable. The visualized deep veins of the right lower extremity are compressible with color flow. No visualized thrombus. Superficial veins: Unremarkable. Soft tissues: No acute findings. IMPRESSION: No DVT within the right lower extremity. Electronically signed by: Tristin Leal MD 02/13/23 06:52 AM Discharge Plan Visit Data Chief Complaint: Leg Injury/Pain Stated Complaint: LEG PAIN ED Provider: Jennifer Leo Discharge Problem: Cellulitis of right lower extremity, Traumatic open wound of right lower leg with infection Patient Disposition: Admitted As Inpatient Discharge Instructions Interventions: ED Discharge Assessment Last Done: 02/13/23 08:13 Traumatic open wound of right lower leg with infection Qualifiers: Encounter type: initial encounter Qualified Code(s): S81.801A - Unspecified open wound, right lower leg, initial encounter
[2023-02-13 07:26] LABS: Thyroid Stimulating Hormone 4.682 uIu/ml (0.300-4.500)
--- NOTE | 2023-02-13 07:38 | XRay Report ---
XR chest 1V portable CLINICAL HISTORY: Sepsis TECHNIQUE: Single frontal radiograph of the chest was obtained. Comparison: Comparison is made to chest radiograph 11/06/2022 FINDINGS: No lines and tubes are seen. The cardiomediastinal silhouette is normal. The lungs are clear. No evid ence of pleural effusion or pneumothorax. IMPRESSION: No acute abnormalities and in particular no radiographic evidence of pneumonia. ACT 112: Negative or not required by law. Electronically signed by: Abdifatah Sheldon M.D. 02/13/2023 7:37 AM
[2023-02-13 07:57] LABS: T4 Free Thyroxine 0.77 ng/dl (0.61-1.60)
[2023-02-13] MEDS ORDERED: MoRPHine SULFATE 2 MG/ML CARP IV PRN (08:40)
[2023-02-13] MEDS ORDERED: ACETAMINOPHEN 325 MG TAB PO PRN (08:40)
[2023-02-13] MEDS ORDERED: ALBUTEROL HFA 8 GM INHALER INH PRN (08:40)
[2023-02-13] MEDS ORDERED: ONDANSETRON INJ 2 MG/ML 2 ML VIAL IV PRN (08:40)
--- NOTE | 2023-02-13 10:05 | Pharmacy Report ---
Pharmacy PK ABX Note - Date of Service February 13, 2023 - Assessment and Plan Assessment 77 year old M receiving IV Vancomycin for treatment of RLE Cellulitis. Redness has progressed to above the knee. Patient with chills, no other systemic signs of infection. No evidence of deeper soft tissue infection/necrotizing fasciitis. WBC 11.56 Patient had 2 doses of Keflex prior to admission. US of RLE performed - results pending BCs pending Plan Vancomycin * Loading dose: 2250 mg IV x 1 * Maintenance dose: 750 mg IV every 12 hours * Regimen is predicted to achieve target AUC/WESTON of 400-600 mg/L.hr * Trough level ordered for: 02/15/23 Pharmacy will continue to follow and will adjust dose/frequency as necessary. Thank you. Pharmacy has transitioned to AUC monitoring for vancomycin. AUC/WESTON is the preferred PK/PD target and is associated with decreased risk of nephrotoxicity compared to traditional trough targets. Vancomycin
[2023-02-13] MEDS: PANTOprazole 40 MG TAB PO SCH (10:32)
[2023-02-13] MEDS: MAGNESIUM SULFATE / D5W 1 GM/100 ML BAG IV SCH ×2 (10:33→12:25)
--- NOTE | 2023-02-13 14:12 | Electrocardiogram Report ---
Test Reason : Blood Pressure : / mmHG Vent. Rate : 079 BPM Atrial Rate : 079 BPM P-R Int : 170 ms QRS Dur : 084 ms QT Int : 368 ms P-R-T Axes : 040 -65 045 degrees QTc Int : 421 ms Normal sinus rhythm Left axis deviation Abnormal ECG When compared with ECG of 06-NOV-2022 07:47, Premature supraventricular complexes are no longer Present Confirmed by Victoriano Nuñez ([id number]) on 02/13/2023 2:11:38 PM Referred By: REFERRED SELF Confirmed By:Tomas Nuñez
--- NOTE | 2023-02-13 14:18 | Hospitalist Progress Note ---
Date of Service February 13, 2023 Assessment & Plan (1) Cellulitis: Plan: Right lower extremity with open wound. Currently on intravenous vancomycin, day 1. Blood culture results pending. Wound care nurse involved. Right lower extremity venous Doppler negative for DVT (2) Hyperlipidemia: Plan: Chronic. Stable. Continue Crestor (3) Benign localized hyperplasia of prostate: Plan: Chronic. Stable. Continue Flomax (4) DVT (deep venous thrombosis): Plan: Patient with remote history of VTE - bilateral DVTs and PEs. He is on Coumadin anticoagulation. INR today = 3.4. Coumadin is now on hold. Will monitor daily INR and dose accordingly Plan Anticipate eventual discharge back to home on oral antibiotic Admission and Anticipated Discharge Date Admission Date: February 13, 2023 Subjective Alert and oriented. Afebrile. INR is 3.4 today and Coumadin will be held. Wound image reviewed. He remains on intravenous vancomycin, day 1 Review of Systems Review of Systems: Constitutional-no fever or chills ENT-no blurred vision, no double vision, no epistaxis, no sore throat Respiratory-no cough, no wheezing, no shortness of breath Cardiac-no palpitations, no chest pain, no syncope GI-no nausea, vomiting, diarrhea, melena, hematochezia -no urinary retention, no urinary incontinence, no dysuria, no hematuria Musculoskeletal-no joint pain, no muscle tenderness Skin-no bruising, no rashes, no pruritus Neuro-no isolated weakness, no paresthesia, no weakness Psych-no depression, no anxiety Physical Exam Physical Exam: General-alert and oriented x3, no fevers, no chills HEENT-head atraumatic and normocephalic, pupils equal and reactive to light, extraocular muscles intact Neck-no lymphadenopathy or thyromegaly, trachea midline Chest-clear to auscultation percussion. No rales wheezing or rhonchi Cardiac-regular rate and rhythm, normal S1 and S2, no murmurs Abdomen-normal bowel sounds, nontender, no hepatosplenomegaly Extremities-erythema right lower extremity with associated induration and tenderness below the knee. There is an open pretibial lesion that is receiving wound care attention Neuro-cranial nerves II through XII intact, motor and sensory function within normal limits, strength symmetrical , no focal deficits Psych-normal affect, normal mood Results & Data Results & Data Vital Signs (Past 12 Hours) Vital Signs Temp Pulse Pulse Pulse Resp BP BP 02/13/23 09:35 36.8 C 76 17 124/79 02/13/23 07:56 76 16 111/72 02/13/23 06:30 81 18 02/13/23 06:21 79 16 153/84 H 02/13/23 05:49 83 16 157/88 H 02/13/23 04:51 86 16 152/81 H 02/13/23 04:48 02/13/23 04:02 83 16 153/78 H 02/13/23 03:38 82 16 165/87 H Pulse Ox O2 Del Method O2 Flow Rate 02/13/23 09:35 94 Room Air 02/13/23 07:56 93 Room Air 02/13/23 06:30 95 02/13/23 06:21 94 Nasal Cannula 2 02/13/23 05:49 96 Nasal Cannula 2 02/13/23 04:51 92 Nasal Cannula 2 02/13/23 04:48 88 L Nasal Cannula 0 02/13/23 04:02 95 Room Air 02/13/23 03:38 94 Room Air Laboratory Results 02/13/23 03:10 02/13/23 03:10 PG Care Time/CCT Total # of Minutes Spent Total Time Spent with Patient: Total time spent is greater than 50% in coordination of care (as documented) at patient's floor/unit and/or counseling patient: Coding Level of Care Code 41004 SUB INP/OBS CARE 3/50MIN Diagnoses Cellulitis L03.90 Hyperlipidemia E78.5 Benign localized hyperplasia of prostate N40.0 DVT (deep venous thrombosis) I82.409
[2023-02-13] MEDS: ACETAMINOPHEN 325 MG TAB PO PRN ×2 (15:02→21:12)
[2023-02-13] MEDS: VANCOMYCIN HCL 750 MG in SODIUM CHLORIDE 0.9% 250 ML IV SCH (16:37)
[2023-02-13] MEDS: TAMSULOSIN HCL 0.4 MG CAP PO SCH (20:07)
[2023-02-13] MEDS: ROSUVASTATIN CALCIUM 10 MG TAB PO SCH (20:07)
[2023-02-14] MEDS: ACETAMINOPHEN 325 MG TAB PO PRN ×2 (00:39→07:50)
[2023-02-14] MEDS: VANCOMYCIN HCL 750 MG in SODIUM CHLORIDE 0.9% 250 ML IV SCH ×2 (03:50→16:15)
[2023-02-14 07:23] LABS: Hematocrit (blood only) 41.2 % (42.0-52.0); Hemoglobin 14.2 g/dl (14.0-18.0); Mean Corpuscular Hemoglobin 30.7 pg (25.0-34.0); Mean Corpuscular Hgb Conc 34.5 g/dL (32.0-36.0); Mean Corpuscular Volume 89.2 fL (80.0-100.0); Mean Platelet Volume 10.6 fL (9.4-12.4); Platelet Count 147 K/uL (130-400); RDW Coefficient of Variation 13.3 % (11.5-14.5); RDW Standard Deviation 43.4 fL (36.4-46.3); Red Blood Count 4.62 M/uL (4.70-6.10); White Blood Count 10.82 K/ul (4.8-10.8)
[2023-02-14 07:38] LABS: BUN Creatinine Ratio 16.1 (10-20); Calcium 8.3 mg/dl (8.6-10.3); Creatinine Clr Calc Pharmacy 69.2 ml/min
[2023-02-14] MEDS: PANTOprazole 40 MG TAB PO SCH (07:50)
[2023-02-14 07:52] LABS: INR 2.8 (0.9-1.1); Prothrombin Time 28.2 Seconds (9.0-12.0)
--- NOTE | 2023-02-14 11:01 | Discharge Summary ---
Date of Service February 14, 2023 Admission HPI Per Admitting Provider Dixon Fonseca is a pleasant 77yo male with remote history of VTE on Coumadin anticoagulation, HLP presenting with RLE cellulitis. One week ago patient was doing yard work. He fell in the yard and landed in an area of cut sticks and yard trimming and sustained a skin tear and scratch to his lateral right leg. He was seen at [facility]. The wound was cleaned and dressed and had steri strips placed. He was started on Keflex. Patient took 2 doses of Keflex and then began feeling ill - abdominal pain and diarrhea. He contacted the Urgent Care and was told that he did not have to complete the antibiotics. He was doing well for several days. He changed the dressing on his wound daily and noted a considerable amount of serous drainage. This evening around 10:30 PM he developed acute pain in the right rosado with redness and swelling. The redness progressed, now above his right knee. He also developed some chills. These symptoms prompted him to come to the ER. In the ER he is afebrile, HD stable and non-toxic in appearance. No additional complaints. ER course: Dilaudid, Zofran, Vancomycin Principal Diagnosis Superficial wound/ulceration pretibial right lower extremity with associated cellulitis Discharge Exam General-alert and oriented x3, no fevers, no chills HEENT-head atraumatic and normocephalic, pupils equal and reactive to light, extraocular muscles intact Neck-no lymphadenopathy or thyromegaly, trachea midline Chest-clear to auscultation percussion. No rales wheezing or rhonchi Cardiac-regular rate and rhythm, normal S1 and S2, no murmurs Abdomen-normal bowel sounds, nontender, no hepatosplenomegaly Extremities-erythema right lower extremity with associated induration and tenderness below the knee. There is an open pretibial lesion that is receiving wound care attention Neuro-cranial nerves II through XII intact, motor and sensory function within normal limits, strength symmetrical , no focal deficits Psych-normal affect, normal mood Discharge Data Allergies Allergy/AdvReac Type Severity Reaction Status Date / Time bee venom protein (honey bee) Allergy Intermediate SWELLING Verified 02/13/23 01:29 mold Allergy Intermediate SNEEZING, Verified 02/13/23 01:29 CONGESTION cephalexin AdvReac Severe SEVERE Verified 02/13/23 01:29 DIARRHEA AFTER 2 DOSES Consultations 02/13/23 05:04 ED Decision to Admit Stat Ordered Studies 02/13/23 02:50 US venous duplex leg [US venous doppler LE RT] Stat Hospital Course (1) Cellulitis: Right lower extremity with open wound. Treated while hospitalized with intravenous vancomycin, day 2. Blood culture results negative. Wound culture ordered and pending. Wound care nurse involved. Right lower extremity venous Doppler negative for DVT (2) Hyperlipidemia: Chronic. Stable. Continue Crestor (3) Benign localized hyperplasia of prostate: Chronic. Stable. Continue Flomax (4) DVT (deep venous thrombosis): Patient with remote history of VTE - bilateral DVTs and PEs. He is on Coumadin anticoagulation. INR today = 2.8. Coumadin will be restarted. Will monitor daily INR and dose accordingly Plan The patient is afebrile and stable. He will be discharged home today, February 14, on oral Cleocin. He will follow-up with his PCP within 1 week. Total Time Total Time Spent Total Time Spent (In Minutes): 40 minutes Discharge Plan Discharge Items Patient Disposition: Home - Home Health Services Reason For Visit: CELLULITIS Discharge Diagnosis: Right lower extremity cellulitis, right lower extremity open pretibial wound Activity: Resume your previous activity Non-emergency contact: Primary Care Provider Call non-emergency contact if: you have any medication questions and your symptoms worsen Follow-up/Referrals: Ephraim Chester MD [Primary Care Provider] - Diet: Regular and Heart Healthy Addtl Attending Provider Instructions: Take clindamycin (Cleocin) 4 times daily as directed. Home health nursing will change right lower extremity wound bandages on a daily basis. Pending Studies at Discharge: Yes Studies:: Right lower extremity wound culture results Stand-Alone Forms: My [facility] [place], Smoking Cessation Medications and DC Order Prescriptions: New clindamycin HCl 300 mg capsule 300 mg PO QID 10 Days Qty: 40 0RF Continued tamsulosin 0.4 mg capsule 0.4 mg PO HS Qty: 90 3RF omeprazole 20 mg capsule,delayed release(DR/EC) 20 mg PO DAILY Qty: 90 3RF albuterol sulfate 90 mcg/actuation HFA aerosol inhaler 1 inh inhalation BID PRN (Reason: shortness of breath or wheezing) Qty: 6.7 2RF Rx Instructions: 1 puff BID PRN rosuvastatin 10 mg tablet 10 mg PO HS Qty: 90 3RF vitamin B complex [B Complex-Vitamin B12] Tablet 1 tab PO DAILY Rx Instructions: PER PT "HAVE BEEN OUT FOR A TIME, NEED TO GET MORE". cholecalciferol (vitamin D3) 1,000 unit capsule 1,000 units PO DAILY warfarin 5 mg tablet 5 mg PO QPM Protocol: Dose Management Condition: Friday Dose/Route: 5 mg Instruction: 1 x 5 mg tablet Condition: Friday Dose/Route: 5 mg Instruction: 1 x 5 mg tablet Condition: Friday Dose/Route: 5 mg Instruction: 1 x 5 mg tablet Condition: Friday Dose/Route: 5 mg Instruction: 1 x 5 mg tablet Condition: Dose/Route: 5 mg Instruction: 1 x 5 mg tablet Condition: Friday Dose/Route: 5 mg Instruction: 1 x 5 mg tablet Condition: Friday Dose/Route: 5 mg Instruction: 1 x 5 mg tablet Protocol Text: Adjustment Start Date: 02/06/23 INR Value: 2.5 INR Date: 02/06/23 Recheck Date: 02/13/23 Admission Data Admit Date/Time: 02/13/23 06:13 Attending Provider: Flavio Singh Admit Provider: Priyanka Coelho Primary Care Provider: Ephraim Chester Other Providers: Priyanka Coelho Coding Level of Care Code 91690 INP/OBS DISCH >30 MIN Diagnoses Cellulitis L03.90 Hyperlipidemia E78.5 Benign localized hyperplasia of prostate N40.0 DVT (deep venous thrombosis) I82.409
--- NOTE | 2023-02-14 11:11 | Hospitalist Progress Note ---
Date of Service February 14, 2023 Assessment & Plan (1) Cellulitis: Plan: Right lower extremity with open wound. Treated while hospitalized with intravenous vancomycin, day 2. Blood culture results negative. Wound culture ordered and pending. Wound care nurse involved. Right lower extremity venous Doppler negative for DVT (2) Hyperlipidemia: Plan: Chronic. Stable. Continue Crestor (3) Benign localized hyperplasia of prostate: Plan: Chronic. Stable. Continue Flomax (4) DVT (deep venous thrombosis): Plan: Patient with remote history of VTE - bilateral DVTs and PEs. He is on Coumadin anticoagulation. INR today = 2.8. Coumadin will be restarted. Will monitor daily INR and dose accordingly Plan The patient is afebrile and stable. He will be discharged home tomorrow, February 15 , on oral Cleocin. Physical therapy evaluation ordered. He will need home health services for wound care and bandage changes. Admission and Anticipated Discharge Date Admission Date: February 13, 2023 Subjective Afebrile. No new problems. Wound culture ordered and pending. INR is down to 2.8. White blood cell count is downtrending. He remains on intravenous vancomycin. Hopefully home tomorrow, February 15, on clindamycin. Home health services will be requested Review of Systems Review of Systems: Constitutional-no fever or chills ENT-no blurred vision, no double vision, no epistaxis, no sore throat Respiratory-no cough, no wheezing, no shortness of breath Cardiac-no palpitations, no chest pain, no syncope GI-no nausea, vomiting, diarrhea, melena, hematochezia -no urinary retention, no urinary incontinence, no dysuria, no hematuria Musculoskeletal-no joint pain, no muscle tenderness Skin-no bruising, no rashes, no pruritus Neuro-no isolated weakness, no paresthesia, no weakness Psych-no depression, no anxiety Physical Exam Physical Exam: General-alert and oriented x3, no fevers, no chills HEENT-head atraumatic and normocephalic, pupils equal and reactive to light, extraocular muscles intact Neck-no lymphadenopathy or thyromegaly, trachea midline Chest-clear to auscultation percussion. No rales wheezing or rhonchi Cardiac-regular rate and rhythm, normal S1 and S2, no murmurs Abdomen-normal bowel sounds, nontender, no hepatosplenomegaly Extremities-erythema right lower extremity with associated induration and tenderness below the knee. There is an open pretibial lesion that is receiving wound care attention Neuro-cranial nerves II through XII intact, motor and sensory function within normal limits, strength symmetrical , no focal deficits Psych-normal affect, normal mood Results & Data Results & Data Vital Signs (Past 12 Hours) Vital Signs Temp Pulse Resp BP Pulse Ox O2 Del Method 02/14/23 07:47 36.4 C L 64 14 147/85 H 97 Room Air Laboratory Results 02/14/23 06:25 02/14/23 06:25 PG Care Time/CCT Total # of Minutes Spent Total Time Spent with Patient: Total time spent is greater than 50% in coordination of care (as documented) at patient's floor/unit and/or counseling patient: Coding Level of Care Code 05746 SUB INP/OBS CARE 3/50MIN Diagnoses Cellulitis L03.90 Hyperlipidemia E78.5 Benign localized hyperplasia of prostate N40.0 DVT (deep venous thrombosis) I82.409
[2023-02-14] MEDS ORDERED: WARFARIN SOD 5 MG TAB PO SCH (16:00)
[2023-02-14] MEDS: TAMSULOSIN HCL 0.4 MG CAP PO SCH (20:18)
[2023-02-14] MEDS: ROSUVASTATIN CALCIUM 10 MG TAB PO SCH (20:18)
[2023-02-15] MEDS ORDERED: VANCOMYCIN LEVEL ONE (03:30)
[2023-02-15 04:13] LABS: Basophils # (auto) 0.02 K/uL (0-0.2); Basophils % (auto) 0.2 %; Eosinophils # (auto) 0.12 K/uL (0-0.50); Eosinophils % (auto) 1.2 %; Hematocrit (blood only) 40.2 % (42.0-52.0); Hemoglobin 13.7 g/dl (14.0-18.0); Immature Granulocytes # (auto) 0.05 K/uL (0.01-0.20); Immature Granulocytes % (auto) 0.5 %; Lymphocytes # (auto) 1.43 K/uL (1.2-3.4); Mean Corpuscular Hemoglobin 30.4 pg (25.0-34.0); Mean Corpuscular Hgb Conc 34.1 g/dL (32.0-36.0); Mean Corpuscular Volume 89.1 fL (80.0-100.0); Mean Platelet Volume 10.3 fL (9.4-12.4); Monocytes # (auto) 0.79 K/uL (0.11-0.59); Monocytes % (auto) 7.8 %; Neutrophils # (auto) 7.77 K/uL (1.40-6.50); Neutrophils % (auto) 76.3 %; Platelet Count 164 K/uL (130-400); RDW Coefficient of Variation 13.2 % (11.5-14.5); RDW Standard Deviation 42.9 fL (36.4-46.3); Red Blood Count 4.51 M/uL (4.70-6.10); White Blood Count 10.18 K/ul (4.8-10.8)
[2023-02-15 04:27] LABS: BUN Creatinine Ratio 17.5 (10-20); Calcium 8.5 mg/dl (8.6-10.3); Creatinine Clr Calc Pharmacy 75.3 ml/min; Est GFR (African American) 80.8 ml/min; Est GFR (Non-African American) 69.7 ml/min
[2023-02-15] MEDS: VANCOMYCIN HCL 750 MG in SODIUM CHLORIDE 0.9% 250 ML IV SCH (04:40)
[2023-02-15 04:49] LABS: INR 1.7 (0.9-1.1); Prothrombin Time 17.9 Seconds (9.0-12.0)
[2023-02-15] MEDS: PANTOprazole 40 MG TAB PO SCH (08:18)
[2023-02-15] MEDS ORDERED: VANCOMYCIN HCL 500 MG in DEXTROSE 5% 100 ML IV ONE (10:15)
--- NOTE | 2023-02-15 10:15 | Pharmacy Report ---
Pharmacy PK ABX Note - Date of Service February 15, 2023 - Assessment and Plan Assessment 77 year old M receiving IV Vancomycin for treatment of RLE Cellulitis. Blood cultures negative to date. Surface wound culture pending. Renal function stable. Day #3 vancomycin Plan Vancomycin * Vancomycin trough level this AM (~11.5hr level) - 7.7mcg/mL, predicted to achieve a steady state AUC of 300mg/L.hr which is subtherapeutic. * Increase maintenance dose: 1250 mg IV every 12 hours with additional 500mg IV X 1 dose now * Regimen is predicted to achieve target AUC/WESTON of 400-600 mg/L.hr * Will repeat a trough at steady state Pharmacy will continue to follow and will adjust dose/frequency as necessary. Thank you. Pharmacy has transitioned to AUC monitoring for vancomycin. AUC/WESTON is the preferred PK/PD target and is associated with decreased risk of nephrotoxicity compared to traditional trough targets. Vancomycin
--- NOTE | 2023-02-15 14:45 | Hospitalist Progress Note ---
Date of Service February 15, 2023 Assessment & Plan (1) Cellulitis: Plan: Right lower extremity with open wound. Gram stain reveals gram-negative rods. Vancomycin switched to Cipro. Final culture report pending. Blood culture results negative. Wound care nurse involved. Right lower extremity venous Doppler negative for DVT (2) Hyperlipidemia: Plan: Chronic. Stable. Continue Crestor (3) Benign localized hyperplasia of prostate: Plan: Chronic. Stable. Continue Flomax (4) DVT (deep venous thrombosis): Plan: Patient with remote history of VTE - bilateral DVTs and PEs. He is on Coumadin anticoagulation. INR today = 1.7. Coumadin has been restarted. Will monitor daily INR and dose accordingly Plan Considerable ambulatory dysfunction. Continue OT and PT. Antibiotic has been switched from vancomycin to intravenous Cipro. He will eventually be discharged to SNF on oral Cipro. Admission and Anticipated Discharge Date Admission Date: February 14, 2023 Subjective Alert and oriented. No new problems. Gram stain of the right pretibial wound is growing gram-negative rods. Culture report pending. Vancomycin switched to Cipro. INR is down to 1.7. Coumadin has been restarted. OT and PT assessments ordered. He apparently will need SNF placement at discharge. Review of Systems Review of Systems: Constitutional-no fever or chills ENT-no blurred vision, no double vision, no epistaxis, no sore throat Respiratory-no cough, no wheezing, no shortness of breath Cardiac-no palpitations, no chest pain, no syncope GI-no nausea, vomiting, diarrhea, melena, hematochezia -no urinary retention, no urinary incontinence, no dysuria, no hematuria Musculoskeletal-no joint pain, no muscle tenderness Skin-no bruising, no rashes, no pruritus Neuro-no isolated weakness, no paresthesia, no weakness Psych-no depression, no anxiety Physical Exam Physical Exam: General-alert and oriented x3, no fevers, no chills HEENT-head atraumatic and normocephalic, pupils equal and reactive to light, extraocular muscles intact Neck-no lymphadenopathy or thyromegaly, trachea midline Chest-clear to auscultation percussion. No rales wheezing or rhonchi Cardiac-regular rate and rhythm, normal S1 and S2, no murmurs Abdomen-normal bowel sounds, nontender, no hepatosplenomegaly Extremities-erythema right lower extremity with associated induration and tenderness below the knee. There is an open pretibial lesion that is receiving wound care attention Neuro-cranial nerves II through XII intact, motor and sensory function within normal limits, strength symmetrical , no focal deficits Psych-normal affect, normal mood Results & Data Results & Data Vital Signs (Past 12 Hours) Vital Signs Temp Pulse Resp BP Pulse Ox O2 Del Method 02/15/23 07:00 36.7 C 58 L 14 122/75 95 Room Air Laboratory Results 02/15/23 03:46 02/15/23 03:46 PG Care Time/CCT Total # of Minutes Spent Total Time Spent with Patient: Total time spent is greater than 50% in coordination of care (as documented) at patient's floor/unit and/or counseling patient: Coding Level of Care Code 88718 SUB INP/OBS CARE 3/50MIN Diagnoses Cellulitis L03.90 Hyperlipidemia E78.5 Benign localized hyperplasia of prostate N40.0 DVT (deep venous thrombosis) I82.409
[2023-02-15] MEDS: CIPROFLOXACIN / D5W 400 MG/200 ML BAG IV SCH (15:29)
[2023-02-15] MEDS ORDERED: WARFARIN SOD 5 MG TAB PO SCH (16:00)
[2023-02-15] MEDS ORDERED: VANCOMYCIN HCL 1,250 MG in SODIUM CHLORIDE 0.9% 250 ML IV SCH (17:00)
[2023-02-15] MEDS: ROSUVASTATIN CALCIUM 10 MG TAB PO SCH (20:23)
[2023-02-15] MEDS: TAMSULOSIN HCL 0.4 MG CAP PO SCH (20:23)
[2023-02-15] MEDS: ACETAMINOPHEN 325 MG TAB PO PRN (23:08)
[2023-02-16] MEDS: CIPROFLOXACIN / D5W 400 MG/200 ML BAG IV SCH ×2 (03:14→14:39)
[2023-02-16] MEDS: PANTOprazole 40 MG TAB PO SCH (08:49)
[2023-02-16 08:50] LABS: Basophils # (auto) 0.04 K/uL (0-0.2); Basophils % (auto) 0.6 %; Eosinophils # (auto) 0.21 K/uL (0-0.50); Eosinophils % (auto) 2.9 %; Hematocrit (blood only) 42.4 % (42.0-52.0); Hemoglobin 14.5 g/dl (14.0-18.0); Immature Granulocytes # (auto) 0.05 K/uL (0.01-0.20); Immature Granulocytes % (auto) 0.7 %; Lymphocytes # (auto) 1.76 K/uL (1.2-3.4); Lymphocytes % (auto) 24.7 %; Mean Corpuscular Hemoglobin 30.1 pg (25.0-34.0); Mean Corpuscular Hgb Conc 34.2 g/dL (32.0-36.0); Mean Corpuscular Volume 88.1 fL (80.0-100.0); Mean Platelet Volume 10.4 fL (9.4-12.4); Monocytes # (auto) 0.63 K/uL (0.11-0.59); Monocytes % (auto) 8.8 %; Neutrophils # (auto) 4.43 K/uL (1.40-6.50); Neutrophils % (auto) 62.3 %; Platelet Count 184 K/uL (130-400); RDW Coefficient of Variation 13.2 % (11.5-14.5); RDW Standard Deviation 42.7 fL (36.4-46.3); Red Blood Count 4.81 M/uL (4.70-6.10); White Blood Count 7.12 K/ul (4.8-10.8)
[2023-02-16 08:58] LABS: BUN Creatinine Ratio 15.2 (10-20); Calcium 8.6 mg/dl (8.6-10.3); Creatinine Clr Calc Pharmacy 73.9 ml/min; Est GFR (Non-African American) 68.1 ml/min; Potassium 4.2 mmol/L (3.5-5.1)
[2023-02-16 09:14] LABS: INR 1.4 (0.9-1.1); Prothrombin Time 14.5 Seconds (9.0-12.0)
--- NOTE | 2023-02-16 14:47 | Hospitalist Progress Note ---
Date of Service February 16, 2023 Assessment & Plan (1) Cellulitis: Plan: Serratia and Citrobacter isolated. Vancomycin switched to IV ciprofloxacin. He will probably be discharged eventually on oral ciprofloxacin to take until the cellulitis has resolved and the wound has healed. (2) Hyperlipidemia: Plan: Stable. Continue current medications (3) Benign localized hyperplasia of prostate: Plan: Stable. Continue current medications (4) DVT (deep venous thrombosis): Plan: Coumadin therapy. INR has drifted down to 1.4. Coumadin dosage has been uptitrated today, 26. Continue daily INR Plan Eventual discharge to SNF this week on oral Cipro Admission and Anticipated Discharge Date Admission Date: February 14, 2023 Subjective Alert and oriented. He is ambulating better. Serratia and Citrobacter isolated in cultures from the right pretibial wound. Vancomycin switched to Cipro. INR has drifted down to 1.4. Coumadin dosage has been uptitrated. Review of Systems Review of Systems: Constitutional-no fever or chills ENT-no blurred vision, no double vision, no epistaxis, no sore throat Respiratory-no cough, no wheezing, no shortness of breath Cardiac-no palpitations, no chest pain, no syncope GI-no nausea, vomiting, diarrhea, melena, hematochezia -no urinary retention, no urinary incontinence, no dysuria, no hematuria Musculoskeletal-no joint pain, no muscle tenderness Skin-no bruising, no rashes, no pruritus Neuro-no isolated weakness, no paresthesia, no weakness Psych-no depression, no anxiety Physical Exam Physical Exam: General-alert and oriented x3, no fevers, no chills HEENT-head atraumatic and normocephalic, pupils equal and reactive to light, extraocular muscles intact Neck-no lymphadenopathy or thyromegaly, trachea midline Chest-clear to auscultation percussion. No rales wheezing or rhonchi Cardiac-regular rate and rhythm, normal S1 and S2, no murmurs Abdomen-normal bowel sounds, nontender, no hepatosplenomegaly Extremities-right lower extremity cellulitis is improving. Open superficial ulceration in the right mid pretibial region is bandaged Neuro-cranial nerves II through XII intact, motor and sensory function within normal limits, strength symmetrical with generalized weakness, no focal deficits Psych-normal affect, normal mood Results & Data Results & Data Vital Signs (Past 12 Hours) Vital Signs Temp Pulse Resp BP Pulse Ox O2 Del Method 02/16/23 08:13 36.2 C L 63 16 126/82 95 Room Air Laboratory Results 02/16/23 08:05 02/16/23 08:05 PG Care Time/CCT Total # of Minutes Spent Total Time Spent with Patient: Total time spent is greater than 50% in coordination of care (as documented) at patient's floor/unit and/or counseling patient: Coding Level of Care Code 03064 SUB INP/OBS CARE 3/50MIN Diagnoses Cellulitis L03.90 Hyperlipidemia E78.5 Benign localized hyperplasia of prostate N40.0 DVT (deep venous thrombosis) I82.409
[2023-02-16] MEDS: WARFARIN SOD 7.5 MG TAB PO SCH (17:00)
[2023-02-16] MEDS: TAMSULOSIN HCL 0.4 MG CAP PO SCH (21:44)
[2023-02-16] MEDS: ROSUVASTATIN CALCIUM 10 MG TAB PO SCH (21:44)
[2023-02-17] MEDS: CIPROFLOXACIN / D5W 400 MG/200 ML BAG IV SCH ×2 (02:14→14:45)
[2023-02-17 07:40] LABS: Basophils # (auto) 0.04 K/uL (0-0.2); Basophils % (auto) 0.6 %; Eosinophils # (auto) 0.19 K/uL (0-0.50); Eosinophils % (auto) 2.9 %; Hemoglobin 14.6 g/dl (14.0-18.0); Immature Granulocytes # (auto) 0.04 K/uL (0.01-0.20); Immature Granulocytes % (auto) 0.6 %; Lymphocytes % (auto) 21.1 %; Mean Corpuscular Hemoglobin 30.7 pg (25.0-34.0); Mean Corpuscular Hgb Conc 34.8 g/dL (32.0-36.0); Mean Corpuscular Volume 88.4 fL (80.0-100.0); Mean Platelet Volume 10.2 fL (9.4-12.4); Monocytes # (auto) 0.74 K/uL (0.11-0.59); Monocytes % (auto) 11.2 %; Neutrophils # (auto) 4.22 K/uL (1.40-6.50); Neutrophils % (auto) 63.6 %; Platelet Count 180 K/uL (130-400); RDW Coefficient of Variation 13.1 % (11.5-14.5); RDW Standard Deviation 42.2 fL (36.4-46.3); Red Blood Count 4.75 M/uL (4.70-6.10); White Blood Count 6.63 K/ul (4.8-10.8)
[2023-02-17 08:01] LABS: BUN Creatinine Ratio 16.8 (10-20); Calcium 8.4 mg/dl (8.6-10.3); Creatinine Clr Calc Pharmacy 68.6 ml/min; Est GFR (African American) 72.3 ml/min; Est GFR (Non-African American) 62.4 ml/min
[2023-02-17 08:02] LABS: INR 1.7 (0.9-1.1); Prothrombin Time 17.8 Seconds (9.0-12.0)
[2023-02-17] MEDS: PANTOprazole 40 MG TAB PO SCH (09:21)
--- NOTE | 2023-02-17 13:07 | Discharge Summary ---
Date of Service February 17, 2023 Principal Diagnosis Right lower extremity cellulitis Discharge Exam General: A&Ox3. NAD. Cooperative. HEENT: Atraumatic, normocephalic. Pulm: CTAB A&P. -wheezes, -rales, -rhonchi. Symmetrical chest rise. No increased work of breathing. No respiratory distress. Cardiac: RRR, -mrg. Radial pulses intact and symmetrical. Abdominal: Nontender, nondistended, soft. BS present. Extremities: Right lower extremity with nearly completely resolved erythema, and no erythema at surgical goal marker lines. Superficial ulceration well dressed, scant granulation tissue, and without purulence/discharge. Sensation of soft touch is intact in the feet bilaterally, ankle dorsiflexion/plantarflexion is 5/5. Patient has been able to ambulate with minimal pain. Discharge Data Allergies Allergy/AdvReac Type Severity Reaction Status Date / Time bee venom protein (honey bee) Allergy Intermediate SWELLING Verified 02/13/23 01:29 mold Allergy Intermediate SNEEZING, Verified 02/13/23 01:29 CONGESTION cephalexin AdvReac Severe SEVERE Verified 02/13/23 01:29 DIARRHEA AFTER 2 DOSES Consultations 02/13/23 05:04 ED Decision to Admit Stat Ordered Studies 02/13/23 02:50 US venous duplex leg [US venous doppler LE RT] Stat Hospital Course (1) Cellulitis: Dixon is a 77-year-old male who presented with severe cellulitis of his right lower extremity limiting his ability to ambulate. He was initially treated with vancomycin which was switched to ciprofloxacin following culture results with Serratia/Citrobacter. He rapidly clinically improved on ciprofloxacin, and following resolution of his erythema had significant improvement in his ambulatory ability. Initial evaluation had recommended rehab; on PT reassessment 02/17 he was noted to be safe to return home. He was discharged home to continue an additional 7 days of ciprofloxacin to complete 10 days of treatment with adjustments to be made as needed based on clinical reevaluation. Right lower extremity cellulitis Culture positive for Serratia/Citrobacter. Significantly improved following IV ciprofloxacin Discharged on ciprofloxacin 500 mg every 12 hours for 7 additional days to complete 10 days of treatment Wound care consult placed on discharge to ensure adequate ulceration wound healing Afebrile, no leukocytosis, ambulating normally at time of discharge Blood cultures remain negative at 48 hours on discharge, final cultures pending - Seen by PT/OT in room for approximately 20 minutes, significant improvement in physical capabilities compared to prior with 6 clicks of 23. Patient's initial evaluation recommended rehab but his ambulatory ability was substantially admitted by pain in the setting of active cellulitis which improved (2) Hyperlipidemia: Stable. Continue current medications (3) Benign localized hyperplasia of prostate: Stable. Continue current medications (4) DVT (deep venous thrombosis): Coumadin therapy. INR was slightly subtherapeutic during admission, dosage slightly increased and follow-up INR 1.7. Recommend INR check on Friday and adjustments as needed, patient agreeable Plan Eventual discharge to SNF this week on oral Cipro Total Time Total Time Spent Total Time Spent (In Minutes): Time spend day of discharge 45 minutes including direct patient care, documentation, review of labs and images, and coordination of care. Discharge Plan Discharge Items Patient Disposition: Home - Self-Care Reason For Visit: CELLULITIS Discharge Diagnosis: Right lower extremity cellulitis, right lower extremity open pretibial wound Activity: Resume your previous activity Non-emergency contact: Primary Care Provider Call non-emergency contact if: you have any medication questions and your symptoms worsen Follow-up/Referrals: Ephraim Chester MD [Primary Care Provider] - Diet: Regular and Heart Healthy Addtl Attending Provider Instructions: You are seen in the hospital for a right lower extremity cellulitis, and infection of the skin and soft tissue. You significantly improved following antibiotic treatment, and breeding discharged home on an antibiotic called ciprofloxacin. Please take ciprofloxacin 500 mg by mouth every 12 hours for 7 days, this will complete a total 10-day course of treatment. Your primary care provider may lengthen or shorten this course of treatment based on clinical reevaluation. Referral to wound care has been made for follow-up to ensure adequate wound healing. You should have a follow-up with your primary care physician within 1 week, an appointment is being scheduled for you. If you do not receive confirmation by phone of an appointment within the next 48 hours, please call your PCP directly at the number above. Antibiotics can affect warfarin treatment and your INR. Your INR was slightly low and you received a dose of warfarin 7.5 mg instead of 5 mg and your INR began to uptrend and was 1.7 at time of discharge. Your goal range is 23. You should have an INR recheck in 3 days, please discuss the result of this with Dr. Chester as additional adjustments to your warfarin may be required If you develop any new or worsening symptoms including fever, chills, sweats, chest pain, chest pressure, difficulty breathing, uncontrolled nausea/vomiting, rash, wheezing, passing out or nearly passing out, bleeding, black/bloody bowel movements, or other new or concerning symptoms please call your primary care physician, or call 911 for re-evaluation in the emergency department if you are very concerned. Pending Studies at Discharge: Yes Studies:: Right lower extremity wound culture results Stand-Alone Forms: My [facility], Smoking Cessation Medications and DC Order Prescriptions: New ciprofloxacin HCl [Cipro] 500 mg tablet 500 mg PO Q12H 10 Days Qty: 20 0RF Continued tamsulosin 0.4 mg capsule 0.4 mg PO HS Qty: 90 3RF omeprazole 20 mg capsule,delayed release(DR/EC) 20 mg PO DAILY Qty: 90 3RF albuterol sulfate 90 mcg/actuation HFA aerosol inhaler 1 inh inhalation BID PRN (Reason: shortness of breath or wheezing) Qty: 6.7 2RF Rx Instructions: 1 puff BID PRN rosuvastatin 10 mg tablet 10 mg PO HS Qty: 90 3RF vitamin B complex [B Complex-Vitamin B12] Tablet 1 tab PO DAILY Rx Instructions: PER PT "HAVE BEEN OUT FOR A TIME, NEED TO GET MORE". cholecalciferol (vitamin D3) 1,000 unit capsule 1,000 units PO DAILY warfarin 5 mg tablet 5 mg PO QPM Protocol: Dose Management Condition: Friday Dose/Route: 5 mg Instruction: 1 x 5 mg tablet Condition: Friday Dose/Route: 5 mg Instruction: 1 x 5 mg tablet Condition: Friday Dose/Route: 5 mg Instruction: 1 x 5 mg tablet Condition: Friday Dose/Route: 5 mg Instruction: 1 x 5 mg tablet Condition: Dose/Route: 5 mg Instruction: 1 x 5 mg tablet Condition: Friday Dose/Route: 5 mg Instruction: 1 x 5 mg tablet Condition: Friday Dose/Route: 5 mg Instruction: 1 x 5 mg tablet Protocol Text: Adjustment Start Date: 02/06/23 INR Value: 2.5 INR Date: 02/06/23 Recheck Date: 02/13/23 Discharge Orders: Discharge Order (Routine); Ordered 02/17/23 Ordered By: Vasyl Warren Admission Data Admit Date/Time: 02/14/23 11:11 Attending Provider: Vasyl Warren Admit Provider: Priyanka Coelho Primary Care Provider: Ephraim Chester Other Providers: Priyanka Coelho ; [facility] [place] ; [place] Coding Level of Care Code 73960 INP/OBS DISCH >30 MIN Diagnoses Cellulitis L03.90 Hyperlipidemia E78.5 Benign localized hyperplasia of prostate N40.0 DVT (deep venous thrombosis) I82.409
[2023-02-17] MEDS: WARFARIN SOD 7.5 MG TAB PO SCH (16:23)
== END 2023-02-17 16:50 | disposition home or self-care (01) | DRG 603 ==
LOC: 3N 00:29 → ED 00:29 → SUATTDRO 06:13 → 3N 08:13 → SUATTDRO 02-14 11:11

== ENCOUNTER 2023-04-18 13:23 | Observation (INO) ==
--- NOTE | 2023-04-18 14:19 | Emergency Department Note ---
Impression & Plan Acute urinary retention, Diarrhea, Weakness, Tingling sensation, Lightheadedness ED Provider Note INFORMANT: Patient and ED PROVIDER(S): Kenny Handley MD CHIEF COMPLAINT: weakness, inability to urinate and diarrhea PLAN: Disposition: Admitted Condition: Good Outpatient prescription management: none Referral: None MEDICAL DECISION MAKING: Patient presented because of dizziness and weakness. He has been dealing with this ongoing diarrhea issue for which GI has started Cipro and Flagyl. The patient was found to have mildly low potassium and magnesium. His ECG and troponin were unremarkable. The patient had a minimal elevation of his BNP. On reassessment the patient was doing much better after a Quesada catheter placement by nursing. He drained out 800 mL of urine. The patient's INR was therapeutic. On reassessment the patient's O2 saturation was significantly low while he was sleeping. He was at 69%. After waking and taking several deep breaths he did increase into the low 90s. He had an unremarkable chest x-ray. Patient will need further management in the hospital. Urinalysis does not reveal any signs of infection. Consultation was made with Dr. Tomas Marcum of the [facility] service. Patient was evaluated in the ER for further management. After review of the information above and other included data, I feel the patie nt requires admission. Triage Nursing notes reviewed and agree them. Vital Signs: reviewed and remarkable for no significant abnormalities Prior /Outside records reviewed: Urology records reviewed regarding Quesada catheter removal. GI records reviewed regarding empiric treatment with Cipro and Flagyl. Differential diagnosis: Infection, dehydration, metabolic abnormality, hypo/hyperglycemia, electrolyte disturbance, anemia, hypoxia, cardiac sources, urinary retention, UTI,, toxicologic, neurologic, as well as other pathologies. Diagnostics, as interpreted by me: ECG: Twelve-lead ECG was sinus rhythm with PVCs at 65 bpm. Left axis deviation. Nonspecific ST. When compared to 02/13/2023 there PVCs are new. Cardiac Monitoring: Cardiac monitoring ordered by me: The patient was placed on continuous cardiac monitoring and observed. It revealed a normal sinus rhythm at 70 bpm Medical decision rules: none Imaging studies: Bladder scan revealed 600ml. Chest x-ray. Findings: A chest x-ray was performed and revealed no pneumothorax, effusion, infiltrate, pulmonary edema, free air under the diaphragm, or wide mediastinum. Impression: No acute disease. HPI: The patient is a 77 year old male who presents to the Emergency Room with complaints of weakness, inability to urinate and diarrhea. This started today after a CT scan and is persisting. The patient also notes the following associated symptoms, total body tingling. The patient has been given no relieving factors. Current pain is rated as 0/10. Patient has been dealing with diarrhea for weeks. Stools negative. GI consult this week empirically started cipro and flagyl. Pt denies LOC, headache, fevers, chills, diaphoresis, visual changes, neck pain, chest pain, breathing difficulties, nausea, vomiting, abdominal pain, back pain, melena, hematochezia, lymphadenopathy, rash, or other complaints. PAST MEDICAL HISTORY: See Below, diverticulitis, DVT PAST SURGICAL HISTORY: See Below, SOCIAL HISTORY: See Below, HOME MEDICATIONS: See Below ALLERGIES: See Below VITALS: See Below PHYSICAL EXAMINATION: GENERAL: Awake, alert, uncomfortable-appearing, in no distress HENT: Normocephalic, atraumatic. Oropharynx unremarkable. EYES: Normal conjunctiva. Sclera non-icteric. PERRL, EOMI NECK: Inspection normal. Non-tender. Supple. No nuchal rigidity. FROM. No masses. RESPIRATORY: Clear to auscultation. No wheezes. No rales. Normal respiratory effort. CARDIAC: Normal rate. Normal rhythm. No murmurs. No rubs. Extremities warm and well perfused. Pulses equal. No JVD. GI: Soft, non-distended. Suprapubic tenderness to palpation. No rebound or guarding. No masses. RECTAL: Deferred. MUSCULOSKELETAL: Atraumatic. Chest examination reveals no tenderness. The back is symmetrical on inspection without obvious abnormality. There is no CVA tender ness to palpation. No joint edema. LOWER EXTREMITIES: Calves are equal size bilaterally and non-tender. No edema. No discoloration. NEURO: Normal sensorium. No sensory or motor deficits noted. Speech normal. SKIN: No rash or jaundice noted. Past Med/Surg History Medical History (Updated 04/18/23 @ 18:03 by Judy Arango PA-C) Benign localized hyperplasia of prostate DVT (deep venous thrombosis) History of deep vein thrombosis of lower extremity Hyperlipidemia Pulmonary emboli Surgical History H/O oral surgery History of colonoscopy S/P tonsillectomy and adenoidectomy Family History Mother Lymphoma Brother Prostate cancer FH: kidney cancer Father Melanoma Non-Hodgkin lymphoma Grandmother (Maternal) Stroke Grandmother (Paternal) Stroke Social History Smoking Status: Unknown if ever smoked Second Hand Exposure: No; Hx Alcohol Use: No Hx Substance Use: No Preferred Language: Pashto Communication Ability: Effective Visual Impairment: No Limitations Hearing Ability: Hard of Hearing 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 Beliefs That Will Affect Care: Buddhism marital status: Current Living Situation: Spouse current occupational status: retired Feels Safe at Home: Yes Childhood Exposure to Second-Hand Smoke: No Dental Care, Regularly: Yes Physical Activity Frequency: Daily Seatbelt Use: always Sunscreen Use: No Assistive Devices: None Allergies Allergies Allergy/AdvReac Type Severity Reaction Status Date / Time bee venom protein (honey bee) Allergy Intermediate SWELLING Verified 04/18/23 09:00 mold Allergy Intermediate SNEEZING, Verified 04/18/23 09:00 CONGESTION cephalexin AdvReac Severe SEVERE Verified 04/18/23 09:00 DIARRHEA AFTER 2 DOSES Home Meds Home Medications Medication Instructions Recorded Confirmed cholecalciferol (vitamin D3) 25 1,000 units PO DAILY 08/18/19 04/18/23 mcg (1,000 unit) capsule vitamin B complex (B 1 tab PO DAILY 11/22/22 04/18/23 Complex-Vitamin B12 tablet) warfarin 5 mg tablet 0 mg PO QPM 02/13/23 04/18/23 nystatin 100,000 unit/gram topical 1 applic topical TID PRN NEEDED 04/11/23 04/18/23 powder Previous Rx's Medication Instructions Recorded omeprazole 20 mg capsule,delayed 20 mg PO DAILY #90 caps 06/05/22 release albuterol sulfate 90 mcg/actuation 1 inh inhalation BID PRN shortness 10/02/22 aerosol inhaler of breath or wheezing #6.7 grams rosuvastatin 10 mg tablet 10 mg PO HS #90 tabs 12/13/22 tamsulosin 0.4 mg capsule 0.4 mg PO HS #90 caps 03/17/23 ciprofloxacin HCl 500 mg tablet 500 mg PO BID 10 days #20 tabs 04/17/23 metronidazole 500 mg tablet 500 mg PO TID #10 tabs 04/17/23 Results & Data (ED) Vital Signs Vital Signs - 24 hr 04/18/23 13:30 04/18/23 13:36 04/18/23 15:04 Temperature 36.4 C L Temperature Source Temporal Artery Scan Pulse Rate - Lying Pulse Rate - Sitting Pulse Rate 68 68 Pulse Rate [Right Apical] 53 L Pulse Rate from SpO2 Sensor Respiratory Rate 20 14 Respiratory Effort / Characteristics Non-Labored Non-Labored Spontaneous Respiratory Depth Normal Normal Respiratory Pattern Regular Blood Pressure - Lying Blood Pressure - Sitting Blood Pressure 163/89 H Blood Pressure [Right Arm] 126/68 Blood Pressure Mean 113 Blood Pressure Mean [Right Arm] 87 Pulse Oximetry 97 97 Oxygen Delivery Method Room Air Room Air Oxygen Flow Rate Sepsis Recent Fever Within 48 Hours No Sepsis New/Unexplained Change in Mental Status Yes Sepsis Action Taken by Nursing No Action Required Oxygen Flow Rate - Titration Pulse Oximetry Post Tiitration 04/18/23 15:04 04/18/23 15:59 04/18/23 15:04 Temperature Temperature Source Pulse Rate - Lying Pulse Rate - Sitting Pulse Rate 53 L Pulse Rate [Right Apical] Pulse Rate from SpO2 Sensor 53 L Respiratory Rate 14 Respiratory Effort / Characteristics Respiratory Depth Respiratory Pattern Blood Pressure - Lying Blood Pressure - Sitting Blood Pressure 126/68 Blood Pressure [Right Arm] Blood Pressure Mean 87 Blood Pressure Mean [Right Arm] Pulse Oximetry 97 72 L 97 Oxygen Delivery Method Room Air Room Air Room Air Oxygen Flow Rate Sepsis Recent Fever Within 48 Hours Sepsis New/Unexplained Change in Mental Status Sepsis Action Taken by Nursing Oxygen Flow Rate - Titration 2 Pulse Oximetry Post Tiitration 98 04/18/23 16:00 04/18/23 16:30 04/18/23 17:00 Temperature Temperature Source Pulse Rate - Lying Pulse Rate - Sitting Pulse Rate 57 L 54 L 62 Pulse Rate [Right Apical] Pulse Rate from SpO2 Sensor Respiratory Rate 22 21 13 Respiratory Effort / Characteristics Respiratory Depth Respiratory Pattern Blood Pressure - Lying Blood Pressure - Sitting Blood Pressure 123/75 130/78 132/77 Blood Pressure [Right Arm] Blood Pressure Mean 91 95 95 Blood Pressure Mean [Right Arm] Pulse Oximetry 98 100 100 Oxygen Delivery Method Nasal Cannula Nasal Cannula Nasal Cannula Oxygen Flow Rate 2 2 2 Sepsis Recent Fever Within 48 Hours Sepsis New/Unexplained Change in Mental Status Sepsis Action Taken by Nursing Oxygen Flow Rate - Titration Pulse Oximetry Post Tiitration 04/18/23 15:14 04/18/23 17:51 04/18/23 18:02 Temperature Temperature Source Pulse Rate - Lying 51 L Pulse Rate - Sitting 51 L Pulse Rate 52 L 61 Pulse Rate [Right Apical] Pulse Rate from SpO2 Sensor 57 L Respiratory Rate 18 Respiratory Effort / Characteristics Respiratory Depth Respiratory Pattern Blood Pressure - Lying 130/78 Blood Pressure - Sitting 135/75 Blood Pressure 129/81 Blood Pressure [Right Arm] Blood Pressure Mean 97 Blood Pressure Mean [Right Arm] Pulse Oximetry 100 Oxygen Delivery Method Nasal Cannula Oxygen Flow Rate 2 Sepsis Recent Fever Within 48 Hours Sepsis New/Unexplained Change in Mental Status Sepsis Action Taken by Nursing Oxygen Flow Rate - Titration Pulse Oximetry Post Tiitration 04/18/23 19:30 04/18/23 20:00 Temperature Temperature Source Pulse Rate - Lying Pulse Rate - Sitting Pulse Rate 57 L 70 Pulse Rate [Right Apical] Pulse Rate from SpO2 Sensor 57 L 68 Respiratory Rate 17 13 Respiratory Effort / Characteristics Respiratory Depth Respiratory Pattern Blood Pressure - Lying Blood Pressure - Sitting Blood Pressure 117/78 136/82 Blood Pressure [Right Arm] Blood Pressure Mean 91 100 Blood Pressure Mean [Right Arm] Pulse Oximetry 100 100 Oxygen Delivery Method Nasal Cannula Nasal Cannula Oxygen Flow Rate 2 2 Sepsis Recent Fever Within 48 Hours Sepsis New/Unexplained Change in Mental Status Sepsis Action Taken by Nursing Oxygen Flow Rate - Titration Pulse Oximetry Post Tiitration Laboratory Data 04/18/23 14:06 04/18/23 14:06 Lab Results 04/18/23 04/18/23 04/18/23 Range/Units 14:06 14:06 14:06 WBC 9.64 (4.8-10.8) K/ul RBC 4.80 (4.70-6.10) M/uL Hgb 14.7 (14.0-18.0) g/dl Hct 41.1 L (42.0-52.0) % MCV 85.6 (80.0-100.0) fL MCH 30.6 (25.0-34.0) pg MCHC 35.8 (32.0-36.0) g/dL RDW Std Deviation 40.7 (36.4-46.3) fL RDW Coeff of Ay[place] 13.1 (11.5-14.5) % Plt Count 251 (130-400) K/uL MPV 10.4 (9.4-12.4) fL Immature Gran % (Auto) 0.4 % Neut % (Auto) 75.5 % Lymph % (Auto) 15.9 % [place] % (Auto) 7.6 % Eos % (Auto) 0.4 % Baso % (Auto) 0.2 % Neut # (Auto) 7.28 H (1.40-6.50) K/uL Lymph # (Auto) 1.53 (1.2-3.4) K/uL [place] # (Auto) 0.73 H (0.11-0.59) K/uL Eos # (Auto) 0.04 (0-0.50) K/uL Baso # (Auto) 0.02 (0-0.2) K/uL Immature Gran # (Auto) 0.04 (0.01-0.20) K/uL PT 30.8 H (9.0-12.0) Seconds INR 3.0 H (0.9-1.1) Sodium 138 (136-145) mmol/L Potassium 3.2 L (3.5-5.1) mmol/L Chloride 101 (98-107) mmol/L Carbon Dioxide 24 (21-32) mmol/L Anion Gap 13 H (3-11) BUN 9 (6-23) mg/dl Creatinine 1.16 (0.6-1.4) mg/dl Est Cr Clr Drug Dosing Not Reportable Est GFR ( Amer) 70.0 ml/min Est GFR (Non-Af Amer) 60.4 ml/min BUN/Creatinine Ratio 7.8 L (10-20) Glucose 92 (70-99(Fasting)) mg/dl Calcium 8.7 (8.6-10.3) mg/dl Magnesium 1.5 L (1.7-2.4) mg/dl Total Bilirubin 0.8 (0.2-1.0) mg/dl AST 25 (13-39) U/L ALT 28 (7-52) U/L Alkaline Phosphatase 68 (34-104) U/L Troponin I High Sens (0-20) pg/ml B-Natriuretic Peptide (0-100) pg/ml Total Protein 6.8 (6.0-8.3) gm/dl Albumin 3.7 (3.4-5.0) gm/dl Globulin 3.1 (2.5-4.0) gm/dl Albumin/Globulin Ratio 1.2 (0.9-2) TSH (0.300-4.500) uIu/ml Urine Color Urine Appearance (Clear) Urine pH (4.5-7.5) Ur Specific [place] (1.000-1.030) Urine Protein (Negative) Urine Glucose (UA) (Negative) Urine Ketones (Negative) Urine Blood (Negative) Urine Nitrite (Negative) Urine Bilirubin (Negative) Urine Urobilinogen (Negative) Ur Leukocyte Esterase (Negative) Urine WBC (Auto) (0-5) /hpf Urine RBC (Auto) (0-4) /hpf U Hyaline Cast (Auto) (0-5) /lpf U Epithel Cells (Auto) (0-5) /lpf Urine Bacteria (Auto) (Negative) SARS-CoV-2, RNA, NAAT (NEGATIVE) 04/18/23 04/18/23 04/18/23 Range/Units 14:06 15:59 17:04 WBC (4.8-10.8) K/ul RBC (4.70-6.10) M/uL Hgb (14.0-18.0) g/dl Hct (42.0-52.0) % MCV (80.0-100.0) fL MCH (25.0-34.0) pg MCHC (32.0-36.0) g/dL RDW Std Deviation (36.4-46.3) fL RDW Coeff of Aydee (11.5-14.5) % Plt Count (130-400) K/uL MPV (9.4-12.4) fL Immature Gran % (Auto) % Neut % (Auto) % Lymph % (Auto) % [place] % (Auto) % Eos % (Auto) % Baso % (Auto) % Neut # (Auto) (1.40-6.50) K/uL Lymph # (Auto) (1.2-3.4) K/uL [place] # (Auto) (0.11-0.59) K/uL Eos # (Auto) (0-0.50) K/uL Baso # (Auto) (0-0.2) K/uL Immature Gran # (Auto) (0.01-0.20) K/uL PT (9.0-12.0) Seconds INR (0.9-1.1) Sodium (136-145) mmol/L Potassium (3.5-5.1) mmol/L Chloride (98-107) mmol/L Carbon Dioxide (21-32) mmol/L Anion Gap (3-11) BUN (6-23) mg/dl Creatinine (0.6-1.4) mg/dl Est Cr Clr Drug Dosing Est GFR ( Amer) ml/min Est GFR (Non-Af Amer) ml/min BUN/Creatinine Ratio (10-20) Glucose (70-99(Fasting)) mg/dl Calcium (8.6-10.3) mg/dl Magnesium (1.7-2.4) mg/dl Total Bilirubin (0.2-1.0) mg/dl AST (13-39) U/L ALT (7-52) U/L Alkaline Phosphatase (34-104) U/L Troponin I High Sens (0-20) pg/ml B-Natriuretic Peptide 120 H (0-100) pg/ml Total Protein (6.0-8.3) gm/dl Albumin (3.4-5.0) gm/dl Globulin (2.5-4.0) gm/dl Albumin/Globulin Ratio (0.9-2) TSH 4.392 (0.300-4.500) uIu/ml Urine Color Urine Appearance (Clear) Urine pH (4.5-7.5) Ur Specific [place] (1.000-1.030) Urine Protein (Negative) Urine Glucose (UA) (Negative) Urine Ketones (Negative) Urine Blood (Negative) Urine Nitrite (Negative) Urine Bilirubin (Negative) Urine Urobilinogen (Negative) Ur Leukocyte Esterase (Negative) Urine WBC (Auto) (0-5) /hpf Urine RBC (Auto) (0-4) /hpf U Hyaline Cast (Auto) (0-5) /lpf U Epithel Cells (Auto) (0-5) /lpf Urine Bacteria (Auto) (Negative) SARS-CoV-2, RNA, NAAT NEGATIVE (NEGATIVE) 04/18/23 04/18/23 Range/Units 17:04 Unknown WBC (4.8-10.8) K/ul RBC (4.70-6.10) M/uL Hgb (14.0-18.0) g/dl Hct (42.0-52.0) % MCV (80.0-100.0) fL MCH (25.0-34.0) pg MCHC (32.0-36.0) g/dL RDW Std Deviation (36.4-46.3) fL RDW Coeff of Aydee (11.5-14.5) % Plt Count (130-400) K/uL MPV (9.4-12.4) fL Immature Gran % (Auto) % Neut % (Auto) % Lymph % (Auto) % [place] % (Auto) % Eos % (Auto) % Baso % (Auto) % Neut # (Auto) (1.40-6.50) K/uL Lymph # (Auto) (1.2-3.4) K/uL [place] # (Auto) (0.11-0.59) K/uL Eos # (Auto) (0-0.50) K/uL Baso # (Auto) (0-0.2) K/uL Immature Gran # (Auto) (0.01-0.20) K/uL PT (9.0-12.0) Seconds INR (0.9-1.1) Sodium (136-145) mmol/L Potassium (3.5-5.1) mmol/L Chloride (98-107) mmol/L Carbon Dioxide (21-32) mmol/L Anion Gap (3-11) BUN (6-23) mg/dl Creatinine (0.6-1.4) mg/dl Est Cr Clr Drug Dosing Est GFR ( Amer) ml/min Est GFR (Non-Af Amer) ml/min BUN/Creatinine Ratio (10-20) Glucose (70-99(Fasting)) mg/dl Calcium (8.6-10.3) mg/dl Magnesium (1.7-2.4) mg/dl Total Bilirubin (0.2-1.0) mg/dl AST (13-39) U/L ALT (7-52) U/L Alkaline Phosphatase (34-104) U/L Troponin I High Sens 11.2 (0-20) pg/ml B-Natriuretic Peptide (0-100) pg/ml Total Protein (6.0-8.3) gm/dl Albumin (3.4-5.0) gm/dl Globulin (2.5-4.0) gm/dl Albumin/Globulin Ratio (0.9-2) TSH (0.300-4.500) uIu/ml Urine Color Yellow Urine Appearance Clear (Clear) Urine pH 6.0 (4.5-7.5) Ur Specific [place] 1.031 H (1.000-1.030) Urine Protein Negative (Negative) Urine Glucose (UA) Negative (Negative) Urine Ketones 1+ H (Negative) Urine Blood 3+ H (Negative) Urine Nitrite Negative (Negative) Urine Bilirubin Negative (Negative) Urine Urobilinogen Negative (Negative) Ur Leukocyte Esterase Negative (Negative) Urine WBC (Auto) 1-5 (0-5) /hpf Urine RBC (Auto) >30 H (0-4) /hpf U Hyaline Cast (Auto) 1-5 (0-5) /lpf U Epithel Cells (Auto) 5-10 H (0-5) /lpf Urine Bacteria (Auto) Negative (Negative) SARS-CoV-2, RNA, NAAT (NEGATIVE) Administered Medications Discontinued Medications Potassium Chloride (K Saúl / Wtr) 10 meq in 100 mls @ 100 mls/hr IV ONE ONE; Protocol Stop: 04/18/23 16:27 Last Infusion: 04/18/23 18:06 Dose: 0 mls/hr Documented By: Admin: 04/18/23 17:01 Dose: 100 mls/hr Documented By: ELINA Magnesium Sulfate/Dextrose (Magnesium Sulfate / D5w) 1 gm in 100 mls @ 50 mls/hr IV ONE ONE Stop: 04/18/23 17:27 Last Infusion: 04/18/23 19:02 Dose: 0 mls/hr Documented By: Admin: 04/18/23 17:01 Dose: 50 mls/hr Documented By: ELINA Lidocaine HCl (Lidocaine 2% Jelly 5 Ml Tube) 5 ml EXT NOW ONE Stop: 04/18/23 14:27 Last Admin: 04/18/23 14:58 Dose: 5 ml Documented By: RUFINO Imaging Data Radiologist's Impression: Chest X-Ray 04/18/23 15:31 XR chest 1V portable CLINICAL HISTORY: hypoxia, weakness TECHNIQUE: Single frontal radiograph of the chest was obtained. Comparison: Comparison is made to chest radiograph 02/13/2023 FINDINGS: No lines and tubes are seen. The cardiomediastinal silhouette is normal. The lungs are clear. No evidence of pleural effusion or pneumothorax. IMPRESSION: No acute abnormalities and in particular no radiographic evidence of pneumonia. ACT 112: Negative or not required by law. Electronically signed by: Abdifatah Sheldon M.D. 04/18/2023 4:31 PM Discharge Plan Visit Data Chief Complaint: Dizziness Stated Complaint: DIZZINESS ED Provider: Kenny Handley Discharge Problem: Acute urinary retention, Diarrhea, Weakness, Tingling sensation, Lightheadedness Forms Stand Alone Forms: [facility] Prescriptions Prescriptions: No Action omeprazole 20 mg capsule,delayed release(DR/EC) 20 mg PO DAILY Qty: 90 3RF albuterol sulfate 90 mcg/actuation HFA aerosol inhaler 1 inh inhalation BID PRN (Reason: shortness of breath or wheezing) Qty: 6.7 2RF Rx Instructions: 1 puff BID PRN rosuvastatin 10 mg tablet 10 mg PO HS Qty: 90 3RF tamsulosin 0.4 mg capsule 0.4 mg PO HS Qty: 90 3RF vitamin B complex [B Complex-Vitamin B12] Tablet 1 tab PO DAILY cholecalciferol (vitamin D3) 1,000 unit capsule 1,000 units PO DAILY ciprofloxacin HCl 500 mg tablet 500 mg PO BID 10 Days Qty: 20 0RF metronidazole 500 mg tablet 500 mg PO TID Qty: 10 0RF nystatin 100,000 unit/gram powder 1 applic topical TID PRN (Reason: NEEDED) warfarin 5 mg tablet 0 mg PO QPM Protocol: Dose Management Condition: Friday Dose/Route: 5 mg Instruction: 1 x 5 mg tablet Condition: Friday Dose/Route: 5 mg Instruction: 1 x 5 mg tablet Condition: Friday Dose/Route: 5 mg Instruction: 1 x 5 mg tablet Condition: Friday Dose/Route: 5 mg Instruction: 1 x 5 mg tablet Condition: Dose/Route: 2.5 mg Instruction: 0.5 x 5 mg tablets Condition: Friday Dose/Route: 5 mg Instruction: 1 x 5 mg tablet Condition: Friday Dose/Route: 5 mg Instruction: 1 x 5 mg tablet Protocol Text: Adjustment Start Date: 04/17/23 INR Value: 2.8 INR Date: 04/17/23 Recheck Date: 04/22/23 Rx Instructions: PER PT'S SPOUSE- NORMALLY 5MG AT NIGHT, BUT THEY ARE HAVING HIM CUT IN HALF FOR 2.5 AT NIGHT. Referrals Referrals: Pro,Ephraim Bray MD [Primary Care Provider] -
[2023-04-18] MEDS ORDERED: LIDOCAINE 2% JELLY 5 ML TUBE EXT ONE (14:26)
[2023-04-18 14:28] LABS: Basophils # (auto) 0.02 K/uL (0-0.2); Basophils % (auto) 0.2 %; Eosinophils # (auto) 0.04 K/uL (0-0.50); Eosinophils % (auto) 0.4 %; Hematocrit (blood only) 41.1 % (42.0-52.0); Hemoglobin 14.7 g/dl (14.0-18.0); Immature Granulocytes # (auto) 0.04 K/uL (0.01-0.20); Immature Granulocytes % (auto) 0.4 %; Lymphocytes # (auto) 1.53 K/uL (1.2-3.4); Lymphocytes % (auto) 15.9 %; Mean Corpuscular Hemoglobin 30.6 pg (25.0-34.0); Mean Corpuscular Hgb Conc 35.8 g/dL (32.0-36.0); Mean Corpuscular Volume 85.6 fL (80.0-100.0); Mean Platelet Volume 10.4 fL (9.4-12.4); Monocytes # (auto) 0.73 K/uL (0.11-0.59); Monocytes % (auto) 7.6 %; Neutrophils # (auto) 7.28 K/uL (1.40-6.50); Neutrophils % (auto) 75.5 %; Platelet Count 251 K/uL (130-400); RDW Coefficient of Variation 13.1 % (11.5-14.5); RDW Standard Deviation 40.7 fL (36.4-46.3); White Blood Count 9.64 K/ul (4.8-10.8)
[2023-04-18 14:45] LABS: Alanine Aminotransferase 28 U/L (7-52); Albumin Globulin Ratio 1.2 (0.9-2); Albumin Level 3.7 gm/dl (3.4-5.0); Alkaline Phosphatase 68 U/L (34-104); Anion Gap 13 (3-11); Aspartate Aminotransferase 25 U/L (13-39); BUN Creatinine Ratio 7.8 (10-20); Bilirubin,Total 0.8 mg/dl (0.2-1.0); Blood Urea Nitrogen 9 mg/dl (6-23); Calcium 8.7 mg/dl (8.6-10.3); Carbon Dioxide 24 mmol/L (21-32); Chloride 101 mmol/L (98-107); Est GFR (Non-African American) 60.4 ml/min; Globulin 3.1 gm/dl (2.5-4.0); Glucose 92 mg/dl (70-99(Fasting)); Magnesium 1.5 mg/dl (1.7-2.4); Potassium 3.2 mmol/L (3.5-5.1); Sodium 138 mmol/L (136-145); Total Protein 6.8 gm/dl (6.0-8.3)
[2023-04-18 14:58] LABS: Prothrombin Time 30.8 Seconds (9.0-12.0)
--- NOTE | 2023-04-18 15:06 | Electrocardiogram Report ---
Test Reason : Blood Pressure : / mmHG Vent. Rate : 065 BPM Atrial Rate : 065 BPM P-R Int : 142 ms QRS Dur : 078 ms QT Int : 460 ms P-R-T Axes : 051 -61 026 degrees QTc Int : 478 ms Sinus rhythm with occasional Premature ventricular complexes Left axis deviation Nonspecific ST abnormality Abnormal ECG When compared with ECG of 13-FEB-2023 03:36, Premature ventricular complexes are now Present Confirmed by Ephraim Bob ([id number]) on 04/18/2023 3:05:45 PM Referred By: Confirmed By:Ephraim Bob
[2023-04-18] MEDS ORDERED: POTASSIUM CHLORIDE / WTR 10 MEQ/100 ML PLCT IV ONE (15:28)
[2023-04-18] MEDS ORDERED: MAGNESIUM SULFATE / D5W 1 GM/100 ML BAG IV ONE (15:28)
[2023-04-18 15:29] LABS: Appearance Urine Clear (Clear); Bacteria Urine Automated Negative (Negative); Bilirubin Urine Negative (Negative); Blood Urine 3+ (Negative); Color Urine Yellow; Glucose Urine UA Negative (Negative); Ketones Urine 1+ (Negative); Leukocyte Esterase Urine Negative (Negative); Nitrite Urine Negative (Negative); Protein Urine Negative (Negative); RBC Urine Automated >30 /hpf (0-4); Specific Gravity Urine 1.031 (1.000-1.030); Urobilinogen Urine Negative (Negative)
--- NOTE | 2023-04-18 16:32 | XRay Report ---
XR chest 1V portable CLINICAL HISTORY: hypoxia, weakness TECHNIQUE: Single frontal radiograph of the chest was obtained. Comparison: Comparison is made to chest radiograph 02/13/2023 FINDINGS: No lines and tubes are seen. The cardiomediastinal silhouette is normal. The lungs are clear. No evid ence of pleural effusion or pneumothorax. IMPRESSION: No acute abnormalities and in particular no radiographic evidence of pneumonia. ACT 112: Negative or not required by law. Electronically signed by: Abdifatah Sheldon M.D. 04/18/2023 4:31 PM
--- NOTE | 2023-04-18 17:44 | History & Physical Report ---
Date of Service April 18, 2023 Assessment & Plan (1) Hypoxia: Plan: Patient was sleeping in the ER and the ER physician noted his pulse ox to be 69- 70, he awoke patient and pulse ox returned to normal. Per patient and his , he has a hx of snoring and breathing different while he sleeps, likely has sleep apnea and has never had a sleep study Will need set up with sleep study when discharged (2) Weakness: Plan: Patient has had 2 weeks of diarrhea and states when he eats the food runs right through him. Today he was incontinent of his bowels while waiting to have his CTAP with contrast. He was evaluated by GI yesterday and felt to have mild diverticulitis. Patient was started on Cipro and Flagyl yesterday. Patient had negative stool studies 04/11/23 (3) Acute urinary retention: Plan: Patient was evaluated by urology and also had Quesada placed for acute onset of urinary retention with large prostate and hemturia Await urine culture follow with Dr Payton (4) Abnormal CT scan, sigmoid colon: Plan: As above Patient was evaluated by GI 04/17/23 presumed to have mild diverticulitis and recommended treatment with Cipro and Flagyl and colonoscopy in 6-8 weeks (5) Diarrhea: Plan: As above Cipro and flagyl probiotics will start clears and possibly if improving can advance to a low residue (6) Chronic venous insufficiency of lower extremity: Plan: - Following with wound clinic (7) Hyperlipidemia: Plan: Chronic stable continue Rosuvastatin 10mg daily History of Present Illness Chief Complaint: diarrhea and dizziness Primary Care Provider: Ephraim Chester MD Dixon Fonseca is a 77 year old male with a past medical history of DVT/PE on coumadin, Hyperlipidemia, GERD, chronic venous insufficiency with wounds under treatment in wound clinic, BPH with LUTS, vitamin D deficiency and anxiety who presented today with complaints of recurrent diarrhea, weakness and then had a hypoxic episode while sleeping in the ER and the ER physician recommended admission. Patient states that he snores and sometimes per his breaths differently while sleeping. He has never had a sleep study and no documented sleep apnea. He denies any chest pain, SOB, cough, fever, chills, nausea, vomiting. He does admit to diarrhea for the past 2 weeks and has tried Lomotil, Imodium with out much relief. He has been evaluated multiple times in the ER, his PCP, urology and also seen yesterday at GI office. He was rx Cirpo and flagyl for presumed mild diverticulitis and was recommended to have a colonoscopy in 6-8 weeks. He tells me he had a normal colonoscopy about 3 years ago. He denies any unintentional weight loss. He does have swelling in the right lower extremity which he states is improving with his wound healing. Patient was evaluated in the ER, he was found to have mild hypokalemia, hypomagnesemia and is being replaced. His EKG was NSR with occasional PVCs, last echo was March 14, 2023 with EF 65-70%. Allergies Allergy/AdvReac Type Severity Reaction Status Date / Time bee venom protein (honey bee) Allergy Intermediate SWELLING Verified 04/18/23 09:00 mold Allergy Intermediate SNEEZING, Verified 04/18/23 09:00 CONGESTION cephalexin AdvReac Severe SEVERE Verified 04/18/23 09:00 DIARRHEA AFTER 2 DOSES Home Medications Medication Instructions Recorded Confirmed Type cholecalciferol (vitamin D3) 25 1,000 units PO DAILY 08/18/19 04/18/23 History mcg (1,000 unit) capsule omeprazole 20 mg capsule,delayed 20 mg PO DAILY #90 caps 06/05/22 04/18/23 Rx release albuterol sulfate 90 mcg/actuation 1 inh inhalation BID PRN shortness 10/02/22 04/18/23 Rx aerosol inhaler of breath or wheezing #6.7 grams vitamin B complex (B 1 tab PO DAILY 11/22/22 04/18/23 History Complex-Vitamin B12 tablet) rosuvastatin 10 mg tablet 10 mg PO HS #90 tabs 12/13/22 04/18/23 Rx warfarin 5 mg tablet 0 mg PO QPM 02/13/23 04/18/23 History tamsulosin 0.4 mg capsule 0.4 mg PO HS #90 caps 03/17/23 04/18/23 Rx nystatin 100,000 unit/gram topical 1 applic topical TID PRN NEEDED 04/11/23 04/18/23 History powder ciprofloxacin HCl 500 mg tablet 500 mg PO BID 10 days #20 tabs 04/17/23 04/18/23 Rx metronidazole 500 mg tablet 500 mg PO TID #10 tabs 04/17/23 04/18/23 Rx Past Med/Surg History Medical History (Updated 04/18/23 @ 18:03 by Judy Arango PA-C) Benign localized hyperplasia of prostate DVT (deep venous thrombosis) History of deep vein thrombosis of lower extremity Hyperlipidemia Pulmonary emboli Surgical History H/O oral surgery History of colonoscopy S/P tonsillectomy and adenoidectomy Family History Mother Lymphoma Brother Prostate cancer FH: kidney cancer Father Melanoma Non-Hodgkin lymphoma Grandmother (Maternal) Stroke Grandmother (Paternal) Stroke Social History Smoking Status: Never smoker Second Hand Exposure: No; Do You Dip or Chew Tobacco: No; Hx Alcohol Use: No Hx Substance Use: No Preferred Language: Latvian Communication Ability: Effective Visual Impairment: No Limitations Hearing Ability: Hard of Hearing Front Desk Admin Required: No Beliefs That Will Affect Care: None marital status: Current Living Situation: Spouse current occupational status: retired Feels Safe at Home: Yes Childhood Exposure to Second-Hand Smoke: No Dental Care, Regularly: Yes Physical Activity Frequency: Daily Seatbelt Use: always Sunscreen Use: No Assistive Devices: None Review of Systems Constitutional: + fatigue; no fever and no chills Ear, Nose, Mouth, Throat: + snoring; no epistaxis and no sinus pain/pressure rhinorrhea Respiratory: + snoring; no cough, no chest congestion, no dyspnea and no wheezing Cardiovascular: + edema; no chest pain, no dyspnea and no calf pain Gastrointestinal: + diarrhea/loose stools; no abdominal pain, no early satiety, no nausea, no vomiting, no dysphagia and no blood in stools Genitourinary: + urinary hesitancy and + nocturia; no dysuria or no flank pain Integumentary: no rash and no new lesions wound right lower leg following with wound clinic Psychiatric: + change in appetite and + anxiety; no confusion Physical Exam Constitutional: WD/WN, vitals as above Neck: trachea midline, no thyromegaly Respiratory: normal respiratory effort, lungs clear to auscultation Cardiovascular: Rate/Rhythm: regular rate and regular rhythm Heart Sounds: normal S1 and normal S2; no murmur Extremities: + edema; no calf tenderness right lower leg swelling - not new per patient is improving and following with wound clinic Gastrointestinal (Abdomen): normal bowel sounds, soft, nontender, no hepatosplenomegaly Psychiatric: A+Ox3, euthymic affect Results & Data Results & Data Vital Signs (Past 12 Hours) Vital Signs Temp Pulse Pulse Resp BP BP Pulse Ox 04/18/23 17:00 62 13 132/77 100 04/18/23 16:30 54 L 21 130/78 100 04/18/23 16:00 57 L 22 123/75 98 04/18/23 15:04 53 L 14 126/68 97 04/18/23 15:59 72 L 04/18/23 15:04 97 04/18/23 15:04 53 L 14 126/68 97 04/18/23 13:36 68 04/18/23 13:30 36.4 C L 68 20 163/89 H 97 O2 Del Method O2 Flow Rate 04/18/23 17:00 Nasal Cannula 2 04/18/23 16:30 Nasal Cannula 2 04/18/23 16:00 Nasal Cannula 2 04/18/23 15:04 Room Air 04/18/23 15:59 Room Air 04/18/23 15:04 Room Air 04/18/23 15:04 Room Air 04/18/23 13:36 04/18/23 13:30 Room Air Laboratory Results Abnormal lab results 04/18/23 04/18/23 04/18/23 Range/Units 14:06 14:06 14:06 Hct 41.1 L (42.0-52.0) % Neut # (Auto) 7.28 H (1.40-6.50) K/uL [place] # (Auto) 0.73 H (0.11-0.59) K/uL PT 30.8 H (9.0-12.0) Seconds INR 3.0 H (0.9-1.1) Potassium 3.2 L (3.5-5.1) mmol/L Anion Gap 13 H (3-11) BUN/Creatinine Ratio 7.8 L (10-20) Magnesium 1.5 L (1.7-2.4) mg/dl B-Natriuretic Peptide (0-100) pg/ml Ur Specific [place] (1.000-1.030) Urine Ketones (Negative) Urine Blood (Negative) Urine RBC (Auto) (0-4) /hpf U Epithel Cells (Auto) (0-5) /lpf 04/18/23 04/18/23 Range/Units 17:04 Unknown Hct (42.0-52.0) % Neut # (Auto) (1.40-6.50) K/uL [place] # (Auto) (0.11-0.59) K/uL PT (9.0-12.0) Seconds INR (0.9-1.1) Potassium (3.5-5.1) mmol/L Anion Gap (3-11) BUN/Creatinine Ratio (10-20) Magnesium (1.7-2.4) mg/dl B-Natriuretic Peptide 120 H (0-100) pg/ml Ur Specific [place] 1.031 H (1.000-1.030) Urine Ketones 1+ H (Negative) Urine Blood 3+ H (Negative) Urine RBC (Auto) >30 H (0-4) /hpf U Epithel Cells (Auto) 5-10 H (0-5) /lpf Diagnostic Findings Chest X-Ray 04/18/23 15:31 XR chest 1V portable CLINICAL HISTORY: hypoxia, weakness TECHNIQUE: Single frontal radiograph of the chest was obtained. Comparison: Comparison is made to chest radiograph 02/13/2023 FINDINGS: No lines and tubes are seen. The cardiomediastinal silhouette is normal. The lungs are clear. No evidence of pleural effusion or pneumothorax. IMPRESSION: No acute abnormalities and in particular no radiographic evidence of pneumonia. ACT 112: Negative or not required by law. Electronically signed by: Abdifatah Sheldon M.D. 04/18/2023 4:31 PM PG Care Time/CCT Total # of Minutes Spent Total Time Spent with Patient: Total time spent is greater than 50% in coordination of care (as documented) at patient's floor/unit and/or counseling patient: Coding Level of Care Code 67136 INT INP/OBS CARE 1/40MIN Diagnoses Hypoxia R09.02 Weakness R53.1 Acute urinary retention R33.[address] scan, sigmoid colon R93.3 Diarrhea R19.7 Diarrhea type: unspecified type Chronic venous insufficiency of lower extremity I87.2 Hyperlipidemia E78.5 (5) Diarrhea Diarrhea type: unspecified type Qualified Code(s): R19.7 - Diarrhea, unspecified
[2023-04-18] MEDS ORDERED: TAMSULOSIN HCL 0.4 MG CAP PO SCH (21:08)
[2023-04-18] MEDS ORDERED: NYSTATIN POWDER 15GM BTL EXT PRN (21:08)
[2023-04-18] MEDS ORDERED: ALBUTEROL HFA 8 GM INHALER INH PRN (21:08)
[2023-04-18] MEDS ORDERED: ACETAMINOPHEN 325 MG TAB PO PRN (21:08)
[2023-04-18] MEDS ORDERED: ROSUVASTATIN CALCIUM 10 MG TAB PO SCH (21:08)
[2023-04-18] MEDS ORDERED: WARFARIN SOD 5 MG TAB PO SCH (21:08)
[2023-04-18] MEDS ORDERED: WARFARIN SOD 2.5 MG TAB PO SCH (21:08)
[2023-04-18] MEDS ORDERED: ONDANSETRON INJ 2 MG/ML 2 ML VIAL IV PRN (21:08)
[2023-04-18] MEDS: metroNIDAZOLE 500 MG TAB PO SCH (22:31)
[2023-04-18] MEDS: CIPROFLOXACIN 500 MG TAB PO SCH (22:33)
[2023-04-19 06:40] LABS: Base Excess ABG 4.1 mEq/L (-9-1.8); HCO3 ABG 27 mmol/L (19-24); Oxygen Saturation ABG 97.2 % (90-95); PCO2 ABG 36 mmHg (35-46); PO2 ABG 82 mmHg (80-95); pH ABG 7.49 (7.35-7.45)
[2023-04-19 06:46] LABS: Hematocrit (blood only) 37.1 % (42.0-52.0); Hemoglobin 13.1 g/dl (14.0-18.0); Mean Corpuscular Hemoglobin 30.3 pg (25.0-34.0); Mean Corpuscular Hgb Conc 35.3 g/dL (32.0-36.0); Mean Corpuscular Volume 85.7 fL (80.0-100.0); Mean Platelet Volume 10.1 fL (9.4-12.4); Platelet Count 219 K/uL (130-400); RDW Coefficient of Variation 13.2 % (11.5-14.5); RDW Standard Deviation 41.5 fL (36.4-46.3); Red Blood Count 4.33 M/uL (4.70-6.10); White Blood Count 8.15 K/ul (4.8-10.8)
[2023-04-19 06:48] LABS: Allen Test Pos (Pos)
[2023-04-19 07:05] LABS: INR 2.4 (0.9-1.1); Prothrombin Time 24.9 Seconds (9.0-12.0)
[2023-04-19 07:11] LABS: Appearance Urine Clear (Clear); Bacteria Urine Automated Negative (Negative); Bilirubin Urine Negative (Negative); Blood Urine 3+ (Negative); Color Urine Yellow; Epithelial Cell Urine Auto >30 /lpf (0-5); Glucose Urine UA Negative (Negative); Ketones Urine 1+ (Negative); Leukocyte Esterase Urine 1+ (Negative); Nitrite Urine Negative (Negative); Protein Urine 1+ (Negative); RBC Urine Automated >30 /hpf (0-4); Specific Gravity Urine 1.022 (1.000-1.030); Urobilinogen Urine Negative (Negative)
[2023-04-19 07:20] LABS: BUN Creatinine Ratio 7.4 (10-20); Calcium 8.4 mg/dl (8.6-10.3); Creatinine Clr Calc Pharmacy 81.8 ml/min; Est GFR (African American) 90.3 ml/min; Est GFR (Non-African American) 77.9 ml/min; Magnesium 1.8 mg/dl (1.7-2.4)
[2023-04-19] MEDS: CIPROFLOXACIN 500 MG TAB PO SCH (07:34)
[2023-04-19] MEDS: metroNIDAZOLE 500 MG TAB PO SCH (07:34)
[2023-04-19] MEDS ORDERED: PANTOprazole 40 MG TAB PO SCH (09:00)
[2023-04-19] MEDS ORDERED: POTASSIUM CHLORIDE CRTAB 20 MEQ TABCR PO STA (11:03)
[2023-04-19] MEDS ORDERED: HYDROCORTISONE HC 2.5% CRM 30GM TUBE EXT PRN (11:18)
--- NOTE | 2023-04-19 13:12 | Discharge Summary ---
Date of Service April 19, 2023 Admission HPI Per Admitting Provider Dixon Fonseca is a 77 year old male with a past medical history of DVT/PE on coumadin, Hyperlipidemia, GERD, chronic venous insufficiency with wounds under treatment in wound clinic, BPH with LUTS, vitamin D deficiency and anxiety who presented today with complaints of recurrent diarrhea, weakness and then had a hypoxic episode while sleeping in the ER and the ER physician recommended admission. Patient states that he snores and sometimes per his breaths differently while sleeping. He has never had a sleep study and no documented sleep apnea. He denies any chest pain, SOB, cough, fever, chills, nausea, v omiting. He does admit to diarrhea for the past 2 weeks and has tried Lomotil, Imodium with out much relief. He has been evaluated multiple times in the ER, his PCP, urology and also seen yesterday at GI office. He was rx Cirpo and flagyl for presumed mild diverticulitis and was recommended to have a colonoscopy in 6-8 weeks. He tells me he had a normal colonoscopy about 3 years ago. He denies any unintentional weight loss. He does have swelling in the right lower extremity which he states is improving with his wound healing. Patient was evaluated in the ER, he was found to have mild hypokalemia, hypomagnesemia and is being replaced. His EKG was NSR with occasional PVCs, last echo was March 14, 2023 with EF 65-70%. Admission Exam Per Admitting Provider Constitutional: WD/WN, vitals as above Neck: trachea midline, no thyromegaly Respiratory: normal respiratory effort, lungs clear to auscultation Cardiovascular: Rate/Rhythm: regular rate and regular rhythm Heart Sounds: normal S1 and normal S2; no murmur Extremities: + edema; no calf tenderness right lower leg swelling - not new per patient is improving and following with wound clinic Gastrointestinal (Abdomen): normal bowel sounds, soft, nontender, no hepatosplenomegaly Psychiatric: A+Ox3, euthymic affect Principal Diagnosis Hypoxia - one episode while sleeping Diarrhea Acute on chronic Urinary retention Discharge Exam Constitutional well developed, well nourished and comfortable; no acute distress Neck trachea midline, no thyromegaly Respiratory normal respiratory effort, lungs clear to auscultation Cardiovascular RRR, no murmur, no edema Extremities: normal capillary refill; no calf tenderness and no edema Gastrointestinal (Abdomen) normal bowel sounds, soft, nontender, no hepatosplenomegaly Skin no rashes, warm and dry Psychiatric Orientation: alert and oriented x 3 Patient was tearful about being away fromhis last night due to being admitted Discharge Data Allergies Allergy/AdvReac Type Severity Reaction Status Date / Time bee venom protein (honey bee) Allergy Intermediate SWELLING Verified 04/18/23 09:00 mold Allergy Intermediate SNEEZING, Verified 04/18/23 09:00 CONGESTION cephalexin AdvReac Severe SEVERE Verified 04/18/23 09:00 DIARRHEA AFTER 2 DOSES Consultations 04/18/23 15:55 ED Decision to Admit Stat Hospital Course (1) Hypoxia: (2) Weakness: (3) Acute urinary retention: (4) Abnormal CT scan, sigmoid colon: (5) Diarrhea: (6) Chronic venous insufficiency of lower extremity: (7) Hyperlipidemia: Discharge Plan Discharge Items Reason For Visit: HYPOXIA Follow-up/Referrals: Ephraim Chester MD [Primary Care Provider] - Medications and DC Order Prescriptions: No Action omeprazole 20 mg capsule,delayed release(DR/EC) 20 mg PO DAILY Qty: 90 3RF albuterol sulfate 90 mcg/actuation HFA aerosol inhaler 1 inh inhalation BID PRN (Reason: shortness of breath or wheezing) Qty: 6.7 2RF Rx Instructions: 1 puff BID PRN rosuvastatin 10 mg tablet 10 mg PO HS Qty: 90 3RF tamsulosin 0.4 mg capsule 0.4 mg PO HS Qty: 90 3RF vitamin B complex [B Complex-Vitamin B12] Tablet 1 tab PO DAILY cholecalciferol (vitamin D3) 1,000 unit capsule 1,000 units PO DAILY ciprofloxacin HCl 500 mg tablet 500 mg PO BID 10 Days Qty: 20 0RF metronidazole 500 mg tablet 500 mg PO TID Qty: 10 0RF nystatin 100,000 unit/gram powder 1 applic topical TID PRN (Reason: NEEDED) warfarin 5 mg tablet 0 mg PO QPM Protocol: Dose Management Condition: Friday Dose/Route: 5 mg Instruction: 1 x 5 mg tablet Condition: Friday Dose/Route: 5 mg Instruction: 1 x 5 mg tablet Condition: Friday Dose/Route: 5 mg Instruction: 1 x 5 mg tablet Condition: Friday Dose/Route: 5 mg Instruction: 1 x 5 mg tablet Condition: Dose/Route: 2.5 mg Instruction: 0.5 x 5 mg tablets Condition: Friday Dose/Route: 5 mg Instruction: 1 x 5 mg tablet Condition: Friday Dose/Route: 5 mg Instruction: 1 x 5 mg tablet Protocol Text: Adjustment Start Date: 04/17/23 INR Value: 2.8 INR Date: 04/17/23 Recheck Date: 04/22/23 Rx Instructions: PER PT'S SPOUSE- NORMALLY 5MG AT NIGHT, BUT THEY ARE HAVING HIM CUT IN HALF FOR 2.5 AT NIGHT. Admission Data Admit Date/Time: 04/18/23 18:18 Attending Provider: Macario Rodriguez Admit Provider: Tomas Marcum Primary Care Provider: Ephraim Chester Other Providers: Tomas Marcum Coding Diagnoses Hypoxia R09.02 Weakness R53.1 Acute urinary retention R33.[address] scan, sigmoid colon R93.3 Diarrhea R19.7 Diarrhea type: unspecified type Chronic venous insufficiency of lower extremity I87.2 Hyperlipidemia E78.5
--- NOTE | 2023-04-19 13:44 | History & Physical Report ---
Date of Service April 19, 2023 Assessment & Plan (1) Hypoxia: Plan: - likely has sleep apnea - will order a overnight pulse oximetry study - will get ABG in AM - currently saturating well on RA - recommend will need sleep study as outpatient (2) Weakness: Plan: hypokalemia and hypomagnesemia replaced in ER with KCL and Magnesium IV will repeat labs in the AM clear liquid diet recheck U/A (3) Acute urinary retention: Plan: continue Quesada cath rechek U/A (4) Abnormal CT scan, sigmoid colon: Plan: Continue the Flagyl and Cipro Rx ordered by GI Keep follow up with GI for colonoscopy in 6-8 weeks (5) Diarrhea: Plan: As above Previously had stool studies (6) Chronic venous insufficiency of lower extremity: Plan: continue with wound clinic continue with dressing on left leg (7) Hyperlipidemia: Plan: chronic and stable continue rosuvastatin Admission and Anticipated Discharge Date Admission Date: April 18, 2023 History of Present Illness Chief Complaint: hypoxia Primary Care Provider: Ephraim Chester MD Dixon Fonseca is a 77 year old male with a past medical history of DVT/PE on coumadin, Hyperlipidemia, GERD, chronic venous insufficiency with wounds under treatment in wound clinic, BPH with LUTS, vitamin D deficiency and anxiety who presented today with complaints of recurrent diarrhea, weakness and then had a hypoxic episode while sleeping in the ER and the ER physician recommended admission. Patient states that he snores and sometimes per his breaths differently while sleeping. He has never had a sleep study and no documented sleep apnea. He denies any chest pain, SOB, cough, fever, chills, nausea, vomi ting. He does admit to diarrhea for the past 2 weeks and has tried Lomotil, Imodium with out much relief. He has been evaluated multiple times in the ER, his PCP, urology and also seen yesterday at GI office. He was rx Cirpo and flagyl for presumed mild diverticulitis and was recommended to have a colonoscopy in 6-8 weeks. He tells me he had a normal colonoscopy about 3 years ago. He denies any unintentional weight loss. He does have swelling in the right lower extremity which he states is improving with his wound healing. Patient was evaluated in the ER, he was found to have mild hypokalemia, hypomagnesemia and is being replaced. His EKG was NSR with occasional PVCs, last echo was March 14, 2023 with EF 65-70%. Patient was eventually taken off his nc O2 and he remained saturating in the mid to [id number]. Allergies Allergy/AdvReac Type Severity Reaction Status Date / Time bee venom protein (honey bee) Allergy Intermediate SWELLING Verified 04/18/23 09:00 mold Allergy Intermediate SNEEZING, Verified 04/18/23 09:00 CONGESTION cephalexin AdvReac Severe SEVERE Verified 04/18/23 09:00 DIARRHEA AFTER 2 DOSES Home Medications Medication Instructions Recorded Confirmed Type cholecalciferol (vitamin D3) 25 1,000 units PO DAILY 08/18/19 04/18/23 History mcg (1,000 unit) capsule omeprazole 20 mg capsule,delayed 20 mg PO DAILY #90 caps 06/05/22 04/18/23 Rx release albuterol sulfate 90 mcg/actuation 1 inh inhalation BID PRN shortness 10/02/22 04/18/23 Rx aerosol inhaler of breath or wheezing #6.7 grams vitamin B complex (B 1 tab PO DAILY 11/22/22 04/18/23 History Complex-Vitamin B12 tablet) rosuvastatin 10 mg tablet 10 mg PO HS #90 tabs 12/13/22 04/18/23 Rx warfarin 5 mg tablet 0 mg PO QPM 02/13/23 04/18/23 History tamsulosin 0.4 mg capsule 0.4 mg PO HS #90 caps 03/17/23 04/18/23 Rx nystatin 100,000 unit/gram topical 1 applic topical TID PRN NEEDED 04/11/23 04/18/23 History powder ciprofloxacin HCl 500 mg tablet 500 mg PO BID 10 days #20 tabs 04/17/23 04/18/23 Rx metronidazole 500 mg tablet 500 mg PO TID #10 tabs 04/17/23 04/18/23 Rx Past Med/Surg History Medical History (Updated 04/18/23 @ 18:03 by Judy Arango PA-C) Benign localized hyperplasia of prostate DVT (deep venous thrombosis) History of deep vein thrombosis of lower extremity Hyperlipidemia Pulmonary emboli Surgical History H/O oral surgery History of colonoscopy S/P tonsillectomy and adenoidectomy Family History Mother Lymphoma Brother Prostate cancer FH: kidney cancer Father Melanoma Non-Hodgkin lymphoma Grandmother (Maternal) Stroke Grandmother (Paternal) Stroke Social History Smoking Status: Never smoker Second Hand Exposure: No; Do You Dip or Chew Tobacco: No; Hx Alcohol Use: No Hx Substance Use: No Preferred Language: Turkmen Communication Ability: Effective Visual Impairment: No Limitations Hearing Ability: Hard of Hearing Platinumsmith Required: No Beliefs That Will Affect Care: None marital status: Current Living Situation: Spouse current occupational status: retired Feels Safe at Home: Yes Childhood Exposure to Second-Hand Smoke: No Dental Care, Regularly: Yes Physical Activity Frequency: Daily Seatbelt Use: always Sunscreen Use: No Assistive Devices: None Review of Systems Review of Systems: Patient denies any chest pain, SOB,congestion, cough, nausea, vomiting, headache, unintentional weight loss. He admits to snoring at night, diarrhea, hematuria after Quesada, urinary retention. He denies any hematochezia, melena or BRB SD. Integumentary: no rash, no lesions and no new lesions Psychiatric: + anxiety; no confusion, no auditory hallucinations and no visual hallucinations Physical Exam Constitutional: well nourished and + well hydrated; no acute distress Neck: trachea midline, no thyromegaly Respiratory: normal respiratory effort, lungs clear to auscultation Cardiovascular: RRR, no murmur, no edema Heart Sounds: normal S1 and normal S2; no murmur Extremities: normal capillary refill; no calf tenderness and no edema Gastrointestinal (Abdomen): normal bowel sounds, soft, nontender, no hepatosplenomegaly Skin: no rashes, warm and dry Psychiatric: A+Ox3, euthymic affect Results & Data Results & Data Vital Signs (Past 12 Hours) Vital Signs Temp Pulse Pulse Resp BP Pulse Ox Pulse Ox 04/19/23 07:47 36.4 C L 58 L 18 138/73 97 04/19/23 05:31 59 L 97 04/19/23 02:17 62 96 O2 Del Method O2 Del Method 04/19/23 07:47 Room Air 04/19/23 05:31 Room Air 04/19/23 02:17 Room Air Laboratory Results Abnormal lab results 04/18/23 04/18/23 04/18/23 Range/Units 14:06 14:06 14:06 RBC (4.70-6.10) M/uL Hgb (14.0-18.0) g/dl Hct 41.1 L (42.0-52.0) % Neut # (Auto) 7.28 H (1.40-6.50) K/uL [place] # (Auto) 0.73 H (0.11-0.59) K/uL PT 30.8 H (9.0-12.0) Seconds INR 3.0 H (0.9-1.1) ABG pH (7.35-7.45) ABG HCO3 (19-24) mmol/L ABG O2 Saturation (90-95) % ABG Base Excess (-9-1.8) mEq/L Potassium 3.2 L (3.5-5.1) mmol/L Chloride (98-107) mmol/L Anion Gap 13 H (3-11) BUN/Creatinine Ratio 7.8 L (10-20) Calcium (8.6-10.3) mg/dl Magnesium 1.5 L (1.7-2.4) mg/dl B-Natriuretic Peptide (0-100) pg/ml Ur Specific [place] (1.000-1.030) Urine Protein (Negative) Urine Ketones (Negative) Urine Blood (Negative) Ur Leukocyte Esterase (Negative) Urine WBC (Auto) (0-5) /hpf Urine RBC (Auto) (0-4) /hpf U Hyaline Cast (Auto) (0-5) /lpf U Epithel Cells (Auto) (0-5) /lpf 04/18/23 04/18/23 04/19/23 Range/Units 17:04 Unknown 06:20 RBC (4.70-6.10) M/uL Hgb (14.0-18.0) g/dl Hct (42.0-52.0) % Neut # (Auto) (1.40-6.50) K/uL [place] # (Auto) (0.11-0.59) K/uL PT (9.0-12.0) Seconds INR (0.9-1.1) ABG pH (7.35-7.45) ABG HCO3 (19-24) mmol/L ABG O2 Saturation (90-95) % ABG Base Excess (-9-1.8) mEq/L Potassium (3.5-5.1) mmol/L Chloride (98-107) mmol/L Anion Gap (3-11) BUN/Creatinine Ratio (10-20) Calcium (8.6-10.3) mg/dl Magnesium (1.7-2.4) mg/dl B-Natriuretic Peptide 120 H (0-100) pg/ml Ur Specific [place] 1.031 H (1.000-1.030) Urine Protein 1+ H (Negative) Urine Ketones 1+ H 1+ H (Negative) Urine Blood 3+ H 3+ H (Negative) Ur Leukocyte Esterase 1+ H (Negative) Urine WBC (Auto) 10-30 H (0-5) /hpf Urine RBC (Auto) >30 H >30 H (0-4) /hpf U Hyaline Cast (Auto) 5-10 H (0-5) /lpf U Epithel Cells (Auto) 5-10 H >30 H (0-5) /lpf 04/19/23 04/19/23 04/19/23 Range/Units 06:31 06:31 06:31 RBC 4.33 L (4.70-6.10) M/uL Hgb 13.1 L (14.0-18.0) g/dl Hct 37.1 L (42.0-52.0) % Neut # (Auto) (1.40-6.50) K/uL [place] # (Auto) (0.11-0.59) K/uL PT 24.9 H (9.0-12.0) Seconds INR 2.4 H (0.9-1.1) ABG pH (7.35-7.45) ABG HCO3 (19-24) mmol/L ABG O2 Saturation (90-95) % ABG Base Excess (-9-1.8) mEq/L Potassium 3.0 L (3.5-5.1) mmol/L Chloride 108 H (98-107) mmol/L Anion Gap (3-11) BUN/Creatinine Ratio 7.4 L (10-20) Calcium 8.4 L (8.6-10.3) mg/dl Magnesium (1.7-2.4) mg/dl B-Natriuretic Peptide (0-100) pg/ml Ur Specific [place] (1.000-1.030) Urine Protein (Negative) Urine Ketones (Negative) Urine Blood (Negative) Ur Leukocyte Esterase (Negative) Urine WBC (Auto) (0-5) /hpf Urine RBC (Auto) (0-4) /hpf U Hyaline Cast (Auto) (0-5) /lpf U Epithel Cells (Auto) (0-5) /lpf 04/19/23 Range/Units 06:31 RBC (4.70-6.10) M/uL Hgb (14.0-18.0) g/dl Hct (42.0-52.0) % Neut # (Auto) (1.40-6.50) K/uL [place] # (Auto) (0.11-0.59) K/uL PT (9.0-12.0) Seconds INR (0.9-1.1) ABG pH 7.49 H (7.35-7.45) ABG HCO3 27 H (19-24) mmol/L ABG O2 Saturation 97.2 H (90-95) % ABG Base Excess 4.1 H (-9-1.8) mEq/L Potassium (3.5-5.1) mmol/L Chloride (98-107) mmol/L Anion Gap (3-11) BUN/Creatinine Ratio (10-20) Calcium (8.6-10.3) mg/dl Magnesium (1.7-2.4) mg/dl B-Natriuretic Peptide (0-100) pg/ml Ur Specific [place] (1.000-1.030) Urine Protein (Negative) Urine Ketones (Negative) Urine Blood (Negative) Ur Leukocyte Esterase (Negative) Urine WBC (Auto) (0-5) /hpf Urine RBC (Auto) (0-4) /hpf U Hyaline Cast (Auto) (0-5) /lpf U Epithel Cells (Auto) (0-5) /lpf Code Status & VTE Plan VTE Prophylaxis Plan VTE Prophylaxis will be ordered: Yes PG Care Time/CCT Total # of Minutes Spent Total Time Spent with Patient: Total time spent is greater than 50% in coordination of care (as documented) at patient's floor/unit and/or counseling patient: Coding Level of Care Code 89113 INT INP/OBS CARE MIN Diagnoses Hypoxia R09.02 Weakness R53.1 Acute urinary retention R33.[address] scan, sigmoid colon R93.3 Diarrhea R19.7 Diarrhea type: unspecified type Chronic venous insufficiency of lower extremity I87.2 Hyperlipidemia E78.5 (5) Diarrhea Diarrhea type: unspecified type Qualified Code(s): R19.7 - Diarrhea, unspecified
--- NOTE | 2023-04-19 13:45 | Discharge Summary ---
Date of Service April 19, 2023 Admission HPI Per Admitting Provider Dixon Fonseca is a 77 year old male with a past medical history of DVT/PE on coumadin, Hyperlipidemia, GERD, chronic venous insufficiency with wounds under treatment in wound clinic, BPH with LUTS, vitamin D deficiency and anxiety who presented today with complaints of recurrent diarrhea, weakness and then had a hypoxic episode while sleeping in the ER and the ER physician recommended admission. Patient states that he snores and sometimes per his breaths differently while sleeping. He has never had a sleep study and no documented sleep apnea. He denies any chest pain, SOB, cough, fever, chills, nausea, v omiting. He does admit to diarrhea for the past 2 weeks and has tried Lomotil, Imodium with out much relief. He has been evaluated multiple times in the ER, his PCP, urology and also seen yesterday at GI office. He was rx Cirpo and flagyl for presumed mild diverticulitis and was recommended to have a colonoscopy in 6-8 weeks. He tells me he had a normal colonoscopy about 3 years ago. He denies any unintentional weight loss. He does have swelling in the right lower extremity which he states is improving with his wound healing. Patient was evaluated in the ER, he was found to have mild hypokalemia, hypomagnesemia and is being replaced. His EKG was NSR with occasional PVCs, last echo was March 14, 2023 with EF 65-70%. Patient was eventually taken off his nc O2 and he remained saturating in the mid to [id number]. Admission Exam Per Admitting Provider Constitutional: well nourished and + well hydrated; no acute distress Neck: trachea midline, no thyromegaly Respiratory: normal respiratory effort, lungs clear to auscultation Cardiovascular: RRR, no murmur, no edemaHeart Sounds:normal S1 and normal S2; no murmurExtremities:normal capillary refill; no calf tenderness and no edema Gastrointestinal (Abdomen): normal bowel sounds, soft, nontender, no hepatosplenomegaly Skin: no rashes, warm and dry Psychiatric: A+Ox3, euthymic affect Principal Diagnosis hypoxia Discharge Exam Constitutional well nourished and + well hydrated; no acute distress Neck trachea midline, no thyromegaly Respiratory normal respiratory effort, lungs clear to auscultation Cardiovascular RRR, no murmur, no edema Heart Sounds: normal S1 and normal S2; no murmur Extremities: normal capillary refill; no calf tenderness and no edema Gastrointestinal (Abdomen) normal bowel sounds, soft, nontender, no hepatosplenomegaly Skin no rashes, warm and dry Psychiatric A+Ox3, euthymic affect Discharge Data Allergies Allergy/AdvReac Type Severity Reaction Status Date / Time bee venom protein (honey bee) Allergy Intermediate SWELLING Verified 04/18/23 09:00 mold Allergy Intermediate SNEEZING, Verified 04/18/23 09:00 CONGESTION cephalexin AdvReac Severe SEVERE Verified 04/18/23 09:00 DIARRHEA AFTER 2 DOSES Consultations 04/18/23 15:55 ED Decision to Admit Stat Hospital Course (1) Hypoxia: - likely has sleep apnea - overnight pulse oximetry study patient had 5:52 <89% - ABGs revealed a normal pO2 and pCO2 - currently saturating well on RA - recommend will need sleep study as outpatient (2) Weakness: hypokalemia and hypomagnesemia replaced in ER with KCL and Magnesium IV KCL 40meq given today recommend to repeat BMP in 1 week (3) Acute urinary retention: continue Quesada cath urine C&S pending follow up with PCP (4) Abnormal CT scan, sigmoid colon: Continue the Flagyl and Cipro Rx ordered by GI Keep follow up with GI for colonoscopy in 6-8 weeks (5) Diarrhea: As above Previously had stool studies (6) Chronic venous insufficiency of lower extremity: continue with wound clinic continue with dressing on left leg (7) Hyperlipidemia: chronic and stable continue rosuvastatin Plan Patient should follow up with PCP will need out patient sleep study will need repeat BMP in 1 week repeat PT/INR next week through PCP Keep follow up with urology and GI Total Time Total Time Spent Total Time Spent (In Minutes): 35 Discharge Plan Discharge Items Patient Disposition: Home - Self-Care Reason For Visit: HYPOXIA Discharge Diagnosis: diarrhea, presumed diverticulitis hypoxia while sleeping not enough forhome O2 per Case Mangement Condition on Discharge: Good Activity: Resume your previous activity Non-emergency contact: Primary Care Provider and Electromechanical Technologist Call non-emergency contact if: you have any medication questions and your temperature is above 101.5 Follow-up/Referrals: Pro,Ephraim Bray MD [Primary Care Provider] - Diet: Heart Healthy and Low Fat Ambulatory Orders: Basic Metabolic Panel (Routine) Timeframe: 1 Week Location: Determined by Patient Ordered By: Judy Arango Magnesium (Routine) Timeframe: 1 Week Location: Determined by Patient Ordered By: Judy Arango Prothrombin Time INR (Routine) Timeframe: 1 Week Location: Determined by Patient Ordered By: Judy Arango Add[place] Attending Provider Instructions: you were admitted after having a hypoxic episode in ER. While you were sleeping your blood oxygen level dropped to 70 and when you were awoken, it returned to normal. You had an overnight pulse ox test that did reveal a few episodes of hypoxia below 89% but not enough to qualify for home oxygen use. It is recommended that you follow up with your primary care doctor and get scheduled for a sleep study. Also recommended that you get a repeat BMP in 1 week to check on your potassium and magnesium levels. Recommend you to follow a low fat and low fiber diet. Continue the cipro and flagyl as directed by GI and keep follow up with them. Continue the Quesada catheter and keep follow up with urology. urine C&S are pending and should follow up with PCP to review this. Also should continue to follow with wound clinic. Placed order for repeat BMP, Mg and PT/INR next week Pending Studies at Discharge: Yes Studies:: urine C&S Stand-Alone Forms: My [facility] Medications and DC Order Prescriptions: Continued omeprazole 20 mg capsule,delayed release(DR/EC) 20 mg PO DAILY Qty: 90 3RF albuterol sulfate 90 mcg/actuation HFA aerosol inhaler 1 inh inhalation BID PRN (Reason: shortness of breath or wheezing) Qty: 6.7 2RF Rx Instructions: 1 puff BID PRN rosuvastatin 10 mg tablet 10 mg PO HS Qty: 90 3RF tamsulosin 0.4 mg capsule 0.4 mg PO HS Qty: 90 3RF vitamin B complex [B Complex-Vitamin B12] Tablet 1 tab PO DAILY cholecalciferol (vitamin D3) 1,000 unit capsule 1,000 units PO DAILY ciprofloxacin HCl 500 mg tablet 500 mg PO BID 10 Days Qty: 20 0RF metronidazole 500 mg tablet 500 mg PO TID Qty: 10 0RF nystatin 100,000 unit/gram powder 1 applic topical TID PRN (Reason: NEEDED) warfarin 5 mg tablet 0 mg PO QPM Protocol: Dose Management Condition: Friday Dose/Route: 5 mg Instruction: 1 x 5 mg tablet Condition: Friday Dose/Route: 5 mg Instruction: 1 x 5 mg tablet Condition: Friday Dose/Route: 5 mg Instruction: 1 x 5 mg tablet Condition: Friday Dose/Route: 5 mg Instruction: 1 x 5 mg tablet Condition: Dose/Route: 2.5 mg Instruction: 0.5 x 5 mg tablets Condition: Friday Dose/Route: 5 mg Instruction: 1 x 5 mg tablet Condition: Friday Dose/Route: 5 mg Instruction: 1 x 5 mg tablet Protocol Text: Adjustment Start Date: 04/17/23 INR Value: 2.8 INR Date: 04/17/23 Recheck Date: 04/22/23 Rx Instructions: PER PT'S SPOUSE- NORMALLY 5MG AT NIGHT, BUT THEY ARE HAVING HIM CUT IN HALF FOR 2.5 AT NIGHT. Discharge Orders: Discharge Order (Routine); Ordered 04/19/23 Ordered By: Judy Arango Admission Data Admit Date/Time: 04/18/23 18:18 Attending Provider: Macario Rodriguez Admit Provider: Tomas Marcum Primary Care Provider: Ephraim Chester Other Providers: Tomas Marcum Coding Level of Care Code 97196 INP/OBS DISCH >30 MIN Diagnoses Hypoxia R09.02 Weakness R53.1 Acute urinary retention R33.[address] scan, sigmoid colon R93.3 Diarrhea R19.7 Diarrhea type: unspecified type Chronic venous insufficiency of lower extremity I87.2 Hyperlipidemia E78.5
== END 2023-04-19 14:30 | disposition home or self-care (01) ==
LOC: ED 13:23 → 3W 13:23 → SUATTDRO 18:18 → 3W 20:12